=== PATIENT | male | born 1980 | race Caucasian/White ===

== ENCOUNTER 2021-06-06 15:37 | Emergency (ER) | payer BC, OTHER ==
--- NOTE | 2021-06-06 15:40 | ERPHSYRPT ---
- History of Present Illness Time Seen by Provider: 06/06/21 15:40 Source: patient Exam Limitations: no limitations Physician History: This is a 41-year-old white male who was showering earlier today and took out his contact lens out of his eyes. However while in the shower the left eye became very red and tender. He is not sure whether or not he got soap in his eye or whether he scratched his eye with his finger when attempting to get his contact out. He was also concerned that there may be retained portion of eye contact present. Patient presents with left eye pain and redness. Location: left eye Severity: mild Apparent Injury: possibly Associated Symptoms: burning, itching, redness Visual Assistive Devices: Contacts Chemical Exposure: Yes (Soap from shower) Trauma: Yes (Possible left eye abrasion with contact removal) Welding Arc/Tanning Bed Exposure: No Allergies/Adverse Reactions: No Known Drug Allergies Allergy (Unverified 06/06/21 15:44) Travel Risk - International Travel Have you traveled outside of the country in past 3 weeks: No - Coronavirus Screening Are you exhibiting any of the following symptoms?: No Close contact with a COVID-19 positive Pt in past 14-21 Days: No - Review of Systems Constitutional: No Symptoms Eyes: Eye Pain, Eye Redness, Tearing, Foreign Body Sensation Ears, Nose, & Throat: No Symptoms Respiratory: No Symptoms Cardiac: No Symptoms Abdominal/Gastrointestinal: No Symptoms Genitourinary Symptoms: No Symptoms Musculoskeletal: No Symptoms Skin: No Symptoms Neurological: No Symptoms Psychological: No Symptoms Endocrine: No Symptoms Hematologic/Lymphatic: No Symptoms Immunological/Allergic: No Symptoms All Other Systems: Reviewed and Negative - Past Medical History Neurological History: Migraines, Peripheral Neuropathy Cardiac History: No Pertinent History Respiratory History: No Pertinent History Endocrine Medical History: No Pertinent History Musculoskeletal History: No Pertinent History Other Medical History: Gastric sleeve 10/2018, - Nursing Vital Signs Nursing Vital Signs: Initial Vital Signs Temperature 97.5 F 06/06/21 15:43 Pulse Rate 80 06/06/21 15:43 Blood Pressure 136/70 06/06/21 15:43 O2 Sat by Pulse Oximetry 96 06/06/21 15:43 Pain Scale Pain Intensity 0 - Physical Exam General Appearance: no apparent distress, alert, anxiety Eye Exam: right eye: normal inspection, left eye: PERRL, EOMI, conjunctival inflammation, corneal abrasion (3 o'clock position (lateral)) Ears, Nose, Throat Exam: normal ENT inspection, moist mucous membranes Neck Exam: normal inspection, non-tender, supple, full range of motion Respiratory Exam: airway intact, No chest tenderness, No respiratory distress Extremity Exam: normal inspection, normal range of motion, pelvis stable Neurologic: alert, oriented x 3, cooperative, wood lather II-XII nml as tested, normal mood/affect, nml cerebellar function, nml station & gait, sensation nml Skin Exam: normal color, warm, dry Lymphatic: No adenopathy SpO2 Interpretation: normal O2 Delivery: Room Air - Course Nursing assessment & vital signs reviewed: Yes Ordered Tests: Medication Summary Discontinued Medications Generic Name Dose Route Start Last Admin Trade Name Freq PRN Reason Stop Dose Admin Eye Irrigation Solution Confirm 06/06/21 15:55 Sodium/Potassium/Devyn/Magnesium 30 Ml Eye Wash Administered 06/06/21 15:56 Dose 30 ml .ROUTE .STK-MED ONE Fluorescein Sodium Confirm 06/06/21 15:55 Fluorescein Sodium 1 Mg/Strip Strip Administered 06/06/21 15:56 Dose 1 mg OP .STK-MED ONE Tetracaine HCl Confirm 06/06/21 15:55 Tetracaine Hcl/Pf 4 Ml Bottle Administered 06/06/21 15:56 Dose 4 ml OP .STK-MED ONE - Progress Progress: unchanged Progress Note: 06/06/21 16:23 Medical decision making: This patient's left eye was visualized closely it appears to be a small linear abrasion in the left cornea at approximately the 3 o'clock position. There is no evidence of any retained, fractured eye contact. The patient is choosing outpatient eyedrops over instillation of erythromycin ointment. We will send that prescription to his pharmacy. Counseled pt/family regarding: diagnosis, need for follow-up - Departure Departure Disposition: Home Clinical Impression: Left corneal abrasion Condition: Stable Critical Care Time: No Referrals: HARJIT RAMSEY NP [Primary Care Provider] - Additional Instructions: Use eyedrops as prescribed. If symptoms are worse within the next 24 hours return to the emergency department for further management. Call an check pilot tomorrow morning if your symptoms have not improved to make arrangements for follow-up appointment. Prescriptions: Hydrocodone/APAP 5/325 [Butler 5/325 mg] 1 each PO Q12H PRN PRN #5 tablet MDD 2 PRN Reason: Pain Tobramycin/Dexamethasone [Tobradex Eye Drops] 2 drops OP QID #5 ml
[2021-06-06 15:44] VITALS: BP 136/70
[2021-06-06] MEDS ORDERED: Fluor-I-Strip/Ful-Flo OP ONE (15:55)
[2021-06-06] MEDS ORDERED: TETRACAINE 0.5% STERI-UNIT SOL OP ONE (15:55)
[2021-06-06] MEDS ORDERED: Eye-Stream Solution ONE (15:55)
[2021-06-06 16:46] VITALS: PULSE 76; O2SAT 98
== END 2021-06-06 16:55 | disposition home or self-care (01) ==
LOC: ED 15:37
DX: S00.212A Abrasion of left eyelid and periocular area, initial encounter (principal); X58.XXXA Exposure to other specified factors, initial encounter; Y93.89 Activity, other specified; Y92.89 Other specified places as the place of occurrence of the external cause; S05.02XA Injury of conjunctiva and corneal abrasion without foreign body, left eye, initial encounter
CPT/HCPCS: 99283; A9270-GY

== ENCOUNTER 2024-02-14 01:13 | Observation (INO) | payer OTHER ==
--- NOTE | 2024-02-14 01:43 | ERPHSYRPT ---
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 Pt reports he has "felt bad" since yesterday morning, has been sweating and chilling intermittently. Pt reports significant abdominal discomfort, states he is unable to get comfortably lying down, has not had any solid food for the past 2 days. Pt denies any n/v/d. Pt does report some sob at time of exam, placed on supplemental O2. Pt reports he had an injection of vivitrol on 02/11, has not had any changes to his medications recently, denies recent travel or known sick contacts. Pt denies use of alcohol/illegal drugs. Timing/Duration: yesterday Quality: dullness Head Pain Location: global Severity of Pain-Max: mild Severity of Pain-Current: mild Associated Symptoms: fatigue, fever/chills, sweating, No confusion, No dizziness, No flushing, No loss of consciousness, No nausea/vomiting, No neck pain, No stiff neck, No vision changes, No visual disturbance Previous symptoms: no prior history Allergies/Adverse Reactions: No Known Drug Allergies Allergy (Unverified 06/06/21 15:44) Home Medications: Atorvastatin Calcium 20 mg PO DAILY 02/14/24 [History] Carvedilol 12.5 mg [Coreg 12.5 mg] 12.5 mg PO BID 02/14/24 [History] Naltrexone Microspheres [Vivitrol] 380 mg IM UD 02/14/24 [History] Triamterene/Hydrochlorothiazid [Triamterene-Hctz 37.5-25 mg Tb] 1 each PO DAILY 02/14/24 [History] Hx Tetanus, Diphtheria Vaccination/Date Given: No Hx Influenza Vaccination/Date Given: No Hx Pneumococcal Vaccination/Date Given: No - Review of Systems Constitutional: Fever, Chills Ears, Nose, & Throat: No Symptoms Respiratory: Dyspnea, No Cough, No Dyspnea on Exertion (VIEYRA), No Wheezing Cardiac: No Symptoms Abdominal/Gastrointestinal: Abdominal Pain, Constipation, Appetite Changes, No Nausea, No Vomiting, No Diarrhea Genitourinary Symptoms: No Symptoms Neurological: No Symptoms Psychological: No Symptoms - Past Medical History Neurological History: Migraines, Peripheral Neuropathy Cardiac History: No Pertinent History Respiratory History: No Pertinent History Endocrine Medical History: No Pertinent History Musculoskeletal History: No Pertinent History Other Medical History: Gastric sleeve 10/2018, - Past Surgical History Past Surgical History: Yes Gastrointestinal: Other Other Surgical History: gastric bypass - Social History Smoking Status: Never smoker Drug Use: none Patient Lives Alone: No - Nursing Vital Signs Nursing Vital Signs: Initial Vital Signs Temperature 100.2 F 02/14/24 01:30 Pulse Rate 112 H 02/14/24 01:30 Respiratory Rate 24 02/14/24 01:30 Blood Pressure 154/98 02/14/24 01:30 O2 Sat by Pulse Oximetry 90 L 02/14/24 01:30 Pain Scale Pain Intensity 3 - Physical Exam General Appearance: mild distress, alert Eye Exam: PERRL/EOMI, eyes nml inspection Ears, Nose, Throat Exam: normal ENT inspection Neck Exam: normal inspection, non-tender Respiratory Exam: normal breath sounds, lungs clear, airway intact, No chest tenderness, No respiratory distress, No rhonchi, No wheezing, No stridor Cardiovascular Exam: normal heart sounds, tachycardia Gastrointestinal/Abdominal Exam: soft, normal bowel sounds, No tenderness, No distention form drafter Exam: normal hearing, normal speech, PERRL Motor/Sensory Exam: no motor deficit, no sensory deficit Skin Exam: normal color, warm, diaphoresis SpO2 Interpretation: normal O2 Delivery: Room Air - Course EKG Interpreted by Me: RATE (104), Sinus Tach, Other (pr 157, qtcb 441, not suggestive of acute ischemia) Ordered Tests: Active Orders 24 hr Category Date Time Status EKG-ER Only STAT Care 02/14/24 01:38 Active IV Insertion STAT Care 02/14/24 01:38 Active ABDOMEN AND PELVIS W CONTRAST [CT] Stat Exams 02/14/24 01:57 Completed CHEST WITH CONTRAST [CT] Stat Exams 02/14/24 01:41 Completed BLOOD CULTURE Stat Lab 02/14/24 04:17 Ordered CBC W DIFF Stat Lab 02/14/24 01:56 Completed CMP Stat Lab 02/14/24 01:56 Completed ETHYL ALCOHOL Stat Lab 02/14/24 01:56 Completed LIPASE Stat Lab 02/14/24 02:00 Completed Lactic Acid Stat Lab 02/14/24 01:45 Completed TROPONIN Q4H Lab 02/14/24 01:56 Completed TROPONIN Q4H Lab 02/14/24 05:45 Ordered TROPONIN Q4H Lab 02/14/24 09:45 Ordered UA W/RFX UR CULTURE Stat Lab 02/14/24 01:40 Ordered Urine Triage Profile Stat Lab 02/14/24 01:40 Ordered Medication Summary Generic Name Dose Route Start Last Admin Trade Name Tika PRN Reason Stop Dose Admin Sodium Chloride 1,000 mls @ 999 mls/hr 02/14/24 03:37 02/14/24 03:45 Sodium Chloride 0.9% 1000 Ml IV 02/14/24 04:37 999 mls/hr .Q1H1M STA Administration Discontinued Medications Generic Name Dose Route Start Last Admin Trade Name Tika PRN Reason Stop Dose Admin Acetaminophen 975 mg 02/14/24 01:38 02/14/24 01:55 Acetaminophen 325 Mg Tablet PO 02/14/24 01:39 975 mg STAT ONE Administration Acetaminophen Confirm 02/14/24 01:52 Acetaminophen 325 Mg Tablet Administered 02/14/24 01:53 Dose 975 mg .ROUTE .STK-MED ONE Droperidol 1.25 mg 02/14/24 02:42 02/14/24 02:50 Droperidol 5 Mg/2 Ml Vial IV 02/14/24 02:43 1.25 mg STAT ONE Administration Droperidol Confirm 02/14/24 02:48 Droperidol 5 Mg/2 Ml Vial Administered 02/14/24 02:49 Dose 5 mg .ROUTE .STK-MED ONE Sodium Chloride 1,000 mls @ 999 mls/hr 02/14/24 01:38 02/14/24 03:23 Sodium Chloride 0.9% 1000 Ml IV 02/14/24 02:38 Infused .Q1H1M STA Infusion Sodium Chloride Confirm 02/14/24 01:52 Sodium Chloride 0.9% 1000 Ml Administered 02/14/24 01:53 Dose 1,000 mls @ ud .ROUTE .STK-MED ONE Sodium Chloride Confirm 02/14/24 03:41 Sodium Chloride 0.9% 1000 Ml Administered 02/14/24 03:42 Dose 1,000 mls @ ud .ROUTE .STK-MED ONE Lab/Rad Data: Laboratory Result Diagrams 02/14/24 01:56 02/14/24 01:56 Laboratory Results 06/30/24 06/30/24 06/30/24 Range/Units 02:42 02:00 01:56 WBC (4.23-9.07) x10^3/uL RBC (4.63-6.08) x10^6/uL Hgb (13.7-17.5) g/dL Hct (40.1-51.0) % MCV (79.0-92.2) fL MCH (25.7-32.2) pg MCHC (32.3-36.5) g/dL RDW (11.6-14.4) % Plt Count (163-337) x10^3/uL MPV (9.4-12.4) fL Gran % (34.0-67.9) % Immature Gran % (Auto) (0.001-0.429) % Nucleat RBC Rel Count (0.00-0.2) % Eos # (Auto) (0.04-0.54) x10^3/uL Immature Gran # (Auto) (0.001-0.031) x10^3u/L Absolute Lymphs (auto) (1.32-3.57) x10^3/uL Absolute Monos (auto) (0.30-0.82) x10^3/uL Absolute Nucleated RBC (0.00-0.012) x10^3u/L Lymphocytes % (21.8-53.1) % Monocytes % (5.3-12.2) % Eosinophils % (0.8-7.0) % Basophils % (0.2-1.2) % Absolute Granulocytes (1.78-5.38) x10^3/uL Basophils # (0.01-0.08) x10^3/uL Sodium (135-145) mmol/L Potassium (3.5-5.1) mmol/L Chloride (98-107) mmol/L Carbon Dioxide (22-30) mmol/L Anion Gap (5-15) MEQ/L BUN (9-20) mg/dL Creatinine (0.66-1.25) mg/dL Estimated GFR ML/MIN Glucose (74-106) mg/dL Lactic Acid (0.4-2.0) Calcium (8.4-10.2) mg/dL Total Bilirubin (0.2-1.3) mg/dL AST (17-59) U/L ALT (0-50) U/L Alkaline Phosphatase (38-126) U/L Troponin I (0.000-0.033) ng/mL Serum Total Protein (6.3-8.2) g/dL Albumin (3.5-5.0) g/dL Lipase 63 (23-300) U/L Ethyl Alcohol < 10 (0-10) mg/dL Influenza Type A Ag NEGATIVE (NEGATIVE) Influenza Type B Ag NEGATIVE (NEGATIVE) RSV (PCR) NEGATIVE (NEGATIVE) SARS-CoV-2 (PCR) NEGATIVE (NEGATIVE) 02/14/24 02/14/24 02/14/24 Range/Units 01:56 01:56 01:56 WBC 11.9 H (4.23-9.07) x10^3/uL RBC 5.02 (4.63-6.08) x10^6/uL Hgb 15.1 (13.7-17.5) g/dL Hct 44.1 (40.1-51.0) % MCV 87.8 (79.0-92.2) fL MCH 30.1 (25.7-32.2) pg MCHC 34.2 (32.3-36.5) g/dL RDW 12.3 (11.6-14.4) % Plt Count 230 (163-337) x10^3/uL MPV 9.3 L (9.4-12.4) fL Gran % 85.1 H (34.0-67.9) % Immature Gran % (Auto) 0.3 (0.001-0.429) % Nucleat RBC Rel Count 0.0 (0.00-0.2) % Eos # (Auto) 0.38 (0.04-0.54) x10^3/uL Immature Gran # (Auto) 0.03 (0.001-0.031) x10^3u/L Absolute Lymphs (auto) 0.63 L (1.32-3.57) x10^3/uL Absolute Monos (auto) 0.70 (0.30-0.82) x10^3/uL Absolute Nucleated RBC 0.00 (0.00-0.012) x10^3u/L Lymphocytes % 5.3 L (21.8-53.1) % Monocytes % 5.9 (5.3-12.2) % Eosinophils % 3.2 (0.8-7.0) % Basophils % 0.2 (0.2-1.2) % Absolute Granulocytes 10.15 H (1.78-5.38) x10^3/uL Basophils # 0.02 (0.01-0.08) x10^3/uL Sodium 138 (135-145) mmol/L Potassium 3.3 L (3.5-5.1) mmol/L Chloride 103 (98-107) mmol/L Carbon Dioxide 23 (22-30) mmol/L Anion Gap 15.2 H (5-15) MEQ/L BUN 15 (9-20) mg/dL Creatinine 0.77 (0.66-1.25) mg/dL Estimated GFR 112.5 ML/MIN Glucose 146 H (74-106) mg/dL Lactic Acid (0.4-2.0) Calcium 9.5 (8.4-10.2) mg/dL Total Bilirubin 1.30 (0.2-1.3) mg/dL AST 26 (17-59) U/L ALT 31 (0-50) U/L Alkaline Phosphatase 63 (38-126) U/L Troponin I < 0.012 (0.000-0.033) ng/mL Serum Total Protein 7.6 (6.3-8.2) g/dL Albumin 4.4 (3.5-5.0) g/dL Lipase (23-300) U/L Ethyl Alcohol (0-10) mg/dL Influenza Type A Ag (NEGATIVE) Influenza Type B Ag (NEGATIVE) RSV (PCR) (NEGATIVE) SARS-CoV-2 (PCR) (NEGATIVE) 02/14/24 Range/Units 01:45 WBC (4.23-9.07) x10^3/uL RBC (4.63-6.08) x10^6/uL Hgb (13.7-17.5) g/dL Hct (40.1-51.0) % MCV (79.0-92.2) fL MCH (25.7-32.2) pg MCHC (32.3-36.5) g/dL RDW (11.6-14.4) % Plt Count (163-337) x10^3/uL MPV (9.4-12.4) fL Gran % (34.0-67.9) % Immature Gran % (Auto) (0.001-0.429) % Nucleat RBC Rel Count (0.00-0.2) % Eos # (Auto) (0.04-0.54) x10^3/uL Immature Gran # (Auto) (0.001-0.031) x10^3u/L Absolute Lymphs (auto) (1.32-3.57) x10^3/uL Absolute Monos (auto) (0.30-0.82) x10^3/uL Absolute Nucleated RBC (0.00-0.012) x10^3u/L Lymphocytes % (21.8-53.1) % Monocytes % (5.3-12.2) % Eosinophils % (0.8-7.0) % Basophils % (0.2-1.2) % Absolute Granulocytes (1.78-5.38) x10^3/uL Basophils # (0.01-0.08) x10^3/uL Sodium (135-145) mmol/L Potassium (3.5-5.1) mmol/L Chloride (98-107) mmol/L Carbon Dioxide (22-30) mmol/L Anion Gap (5-15) MEQ/L BUN (9-20) mg/dL Creatinine (0.66-1.25) mg/dL Estimated GFR ML/MIN Glucose (74-106) mg/dL Lactic Acid 0.9 (0.4-2.0) Calcium (8.4-10.2) mg/dL Total Bilirubin (0.2-1.3) mg/dL AST (17-59) U/L ALT (0-50) U/L Alkaline Phosphatase (38-126) U/L Troponin I (0.000-0.033) ng/mL Serum Total Protein (6.3-8.2) g/dL Albumin (3.5-5.0) g/dL Lipase (23-300) U/L Ethyl Alcohol (0-10) mg/dL Influenza Type A Ag (NEGATIVE) Influenza Type B Ag (NEGATIVE) RSV (PCR) (NEGATIVE) SARS-CoV-2 (PCR) (NEGATIVE) - Progress Progress: unchanged Air Movement: good Progress Note: 02/14/24 04:25 GOODEN improved w/ droperidol pt has received 2L IV NS, has not urinated yet CT chest/abd/pel 1. Bilateral simple renal cortical cysts. 2. Mild colonic diverticulosis without diverticulitis. 3. Small fat containing umbilical hernia. 4. Mild lumbar spondylotic changes with L5 1st degree lytic spondylolisthesis. Bilateral lower lobes posterior subpleural patchy ground glass veiling and reticular densities, more evident on the left side, possibly post-infectious sequel advise clinical correlation pt has been hypoxic, requiring supplemental O2 to keep sat in mid 90s no hx of COPD, does report sleep apnea blood cx obtained lipase wnl plan to admit to hospitalist for further w/u, Dr Eugene willing to accept Blood Culture(s) Obtained: Yes Antibiotics given: No Will see patient in: hospital (observation) Counseled pt/family regarding: lab results, diagnosis, need for follow-up, rad results Medical Desision Making - Diagnostic Testing Diagnostic test were ordered, analyzed, and reviewed by me: Yes Radiological Interpretation: Reviewed by me, Teleradiologist Report - Risk of complications The pt has a high risk of morbidity or mortality based on: Decision regarding hospitilization or escalation of hosp level of care - Departure Departure Disposition: Observation Clinical Impression: Hypoxia Abdominal pain Qualifiers: Abdominal location: generalized Qualified Code(s): R10.84 - Generalized abdominal pain Headache Qualifiers: Headache type: unspecified Headache chronicity pattern: acute headache Intractability: not intractable Qualified Code(s): R51.9 - Headache, unspecified Condition: Stable Critical Care Time: No Referrals: HARJIT RAMSEY NP [Primary Care Provider] - Follow up/PCP as directed
[2024-02-14] MEDS ORDERED: TYLENOL 325 MG ONE (01:52)
[2024-02-14] MEDS ORDERED: Sodium Chloride 0.9% 1000 ML 1,000 ML ONE ×2 (01:52→03:41)
[2024-02-14] MEDS: Sodium Chloride 0.9% 1000 ML 1,000 ML IV STA ×2 (01:54→03:45)
[2024-02-14] MEDS: TYLENOL 325 MG PO ONE (01:55)
[2024-02-14 01:58] LABS: Absolute Neutrophil Ct (ANC) 10.15 x10^3/uL (1.78-5.38); BASOPHIL % 0.2 % (0.2-1.2); Basophil (Absolute #) 0.02 x10^3/uL (0.01-0.08); Eosinophil % 3.2 % (0.8-7.0); Eosinophil (Absolute #) 0.38 x10^3/uL (0.04-0.54); Hematocrit 44.1 % (40.1-51.0); Hemoglobin 15.1 g/dL (13.7-17.5); IMMATURE GRAN # 0.03 x10^3u/L (0.001-0.031); IMMATURE GRAN % 0.3 % (0.001-0.429); Lymphocyte (Absolute #) 0.63 x10^3/uL (1.32-3.57); Lymphocytes % 5.3 % (21.8-53.1); Mean Cell Volume 87.8 fL (79.0-92.2); Mean Corpuscular Hemoglobin 30.1 pg (25.7-32.2); Mean Corpuscular Hgb Concent. 34.2 g/dL (32.3-36.5); Mean Platelet Volume 9.3 fL (9.4-12.4); Monocytes % 5.9 % (5.3-12.2); Neutrophil % 85.1 % (34.0-67.9); Platelet Count 230 x10^3/uL (163-337); Red Blood Count 5.02 x10^6/uL (4.63-6.08); Red Cell Distribution Width 12.3 % (11.6-14.4); White Blood Count 11.9 x10^3/uL (4.23-9.07)
[2024-02-14 02:15] LABS: ALBUMIN 4.4 g/dL (3.5-5.0); ANION GAP 15.2 MEQ/L (5-15); BILIRUBIN,TOTAL 1.3 mg/dL (0.2-1.3); Calcium 9.5 mg/dL (8.4-10.2); Creatinine 1 0.77 mg/dL (0.66-1.25); EST GLOMERULAR FILTRATION RATE 112.5 ML/MIN; Potassium 3.3 mmol/L (3.5-5.1); Total Protein 7.6 g/dL (6.3-8.2)
[2024-02-14 03:19] LABS: INFLUENZA A NEGATIVE (NEGATIVE); INFLUENZA B NEGATIVE (NEGATIVE); RESPIRATORY SYNCTIAL VIRUS NEGATIVE (NEGATIVE); SARS-CoV-2 Xpert Express NEGATIVE (NEGATIVE)
--- NOTE | 2024-02-14 03:26 | XRAY ---
CLINICAL HISTORY: hypoxic, sob COMPARISON: 11/14/2023 TECHNIQUE: Contiguous axial CT images of the chest were acquired with the administration of 80 cc Isovue-370 intravenous contrast. Coronal and sagittal reconstructions were obtained. One of the following dose reduction techniques were utilized for this exam: Automated exposure control, adjustment of the mA and/or kV according to patient size, use of iterative reconstruction? FINDINGS: Bilateral lower lobes posterior subpleural patchy ground glass veiling and reticular densities, more evident on the left side. No pulmonary nodules, cavitations or masses. The main pulmonary trunk, right and left pulmonary arteries show no obvious emboli on the current contrast-enhanced non-angiographic phase. The aortic arch and visualized ascending aorta and descending aorta are normal. No significant mediastinal lymphadenopathy. No evidence of pleural/pericardial effusion. Heart size is normal. Small hiatus hernia. Mild thoracic spondylotic changes. IMPRESSION: Bilateral lower lobes posterior subpleural patchy ground glass veiling and reticular densities, more evident on the left side, possibly post-infectious sequel advise clinical correlation. Electronically Signed by: Harris Carranza MD. (02/14/2024 03:22:21 EDT)
--- NOTE | 2024-02-14 03:38 | XRAY ---
CLINICAL HISTORY: abdominal pain COMPARISON: None TECHNIQUE: A CT scan of the abdomen and pelvis was performed with 80 cc Isovue-370 IV contrast. One of the following dose reduction techniques was utilized for this exam: Automated exposure control, adjustment of the mA and/or kV according to patient size, and use of iterative reconstruction. FINDINGS: Abdomen: The liver is average in size. No focal or diffuse parenchymal abnormality. The portal vein, intrahepatic biliary radicals and the bile ducts are normal. The spleen is average in size with a small splenule near its inferior pole. The pancreas and adrenal glands are unremarkable. The kidneys are normal in size and shape. No calculi or hydronephrosis. Lower pole cysts are seen measuring 48 x 31 mm and 35 x 31 mm on the right and left sides respectively. The gallbladder is normal. No pericholecystic collection or radio dense calculi in the gall bladder. Evidence of the gastric surgical procedure for clinical correlation. Mild colonic diverticulosis without signs of diverticulitis. The visualized small bowel loops are unremarkable. There is no evidence of significant enlargement of the mesenteric or retroperitoneal lymph nodes. Small fat-containing umbilical hernia. Normal appearance of the appendix. Pelvis: The urinary bladder is unremarkable. The rectosigmoid colon is unremarkable. The prostate is unremarkable. The pelvic vasculature is unremarkable. No evidence of pelvic lymphadenopathy. Mild lumbar spondylotic changes with L5 1st degree lytic spondylolisthesis. IMPRESSION: 1. Bilateral simple renal cortical cysts. 2. Mild colonic diverticulosis without diverticulitis. 3. Small fat containing umbilical hernia. 4. Mild lumbar spondylotic changes with L5 1st degree lytic spondylolisthesis. Electronically Signed by: Harris Carranza MD. (02/14/2024 03:34:01 EDT)
--- NOTE | 2024-02-14 05:53 | PCM.HP ---
History of Present Illness - Chief Complaint Chief Complaint: hypoxia Date: 02/14/24 History of Present Illness: Mr. KATE is a 43 year old male with a past medical history significant for hypertension, EtOH use in the past and hyperlipidemia who presents to the [facility] with complaints of headache that started this morning and worsened through the day. No other associated symptoms such as slurred speech, focal weakness or vision changes. No fever/chills. Slight nausea but no vomiting or diarrhea. Tried taking tylenol at home without benefit. He used to have migraines as a child but believes those were worse. 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 He is resting in bed, sleepy but arousable. He initially was unable to make urine but has finally started peeing after receiving 2L of IVFs in the ER. - Review of Systems Constitutional: Fatigue, Lethargy, No Fever, No Chills Eyes: No Vision Changes Ears, Nose, & Throat: No Epistaxis, No Painful Swallowing Respiratory: No Cough, No Orthopnea, No Short Of Breath Cardiac: No Chest Pain, No Edema, No Palpitations Abdominal/Gastrointestinal: Nausea, No Abdominal Pain, No Vomiting, No Diarrhea Genitourinary Symptoms: No Dysuria, No Frequency, No Hematuria Musculoskeletal: No Neck Pain, No Joint Pain Skin: No Cellulitis, No Rash Neurological: Headache, No Dizziness, No Focal Weakness Psychological: No Suicidal Ideations Endocrine: No Polyuria, No Polydipsia Hematologic/Lymphatic: No Easy Bleeding Medications & Allergies Home Medications: Home Medication List Atorvastatin Calcium 20 mg PO DAILY 02/14/24 [History Confirmed 02/14/24] Carvedilol 12.5 mg [Coreg 12.5 mg] 12.5 mg PO BID 02/14/24 [History Confirmed 02/14/24] Multivitamin [Multi-Vitamin Daily] 1 tab PO DAILY 02/14/24 [History Confirmed 02/14/24] Naltrexone Microspheres [Vivitrol] 380 mg IM UD 02/14/24 [History Confirmed 02/14/24] Triamterene/Hydrochlorothiazid [Triamterene-Hctz 37.5-25 mg Tb] 1 each PO DAILY 02/14/24 [History Confirmed 02/14/24] Allergies/Adverse Reactions: Allergies Allergy/AdvReac Type Severity Reaction Status Date / Time No Known Drug Allergies Allergy Verified 02/14/24 05:11 - Past Medical History Past Medical History: Yes Neurological History: Migraines, Peripheral Neuropathy ENT History: No Pertinent History Cardiac History: No Pertinent History Respiratory History: No Pertinent History Endocrine Medical History: No Pertinent History Musculoskelatal History: No Pertinent History GI Medical History: Diverticulosis History: No Pertinent History Pyscho-Social History: No Pertinent History Male Reproductive Disorders: No Pertinent History Comment: Gastric sleeve 10/2018, - Past Surgical History Past Surgical History: Yes Neuro Surgical History: No Pertinent History Cardiac History: No Pertinent History Respiratory Surgery: No Pertinent History GI Surgical History: Other Genitourinary Surgical Hx: No Pertinent History Musculskeletal Surgical Hx: No Pertinent History Male Surgical History: No Pertinent History Other Surgical History: gastric bypass - Social History Smoking Status: Never smoker Exposure to second hand smoke: No Alcohol: None Drug Use: none - Social Determinants of Health Will the patient participate in the screening: Yes Do you worry about a steady place to live?: No Do you have any problems with any of the following?: No known problems In the past 12 months,have you had to go without utilities?: No Have you or anyone in your house had to go without enough: No Transportation Issues: No Has anyone in your support network made you feel unsafe?: No Does the patient want assistance with any of the above?: No - Physical Exam Vital Signs: Vital Signs - 24 hr Temp Pulse Resp BP BP Pulse Ox 02/14/24 05:20 99.1 F 99 H 22 133/81 93 L 02/14/24 04:30 97.7 F 91 H 24 133/76 95 02/14/24 04:00 97 H 23 130/79 94 L 02/14/24 03:53 92 H 21 148/94 94 L 02/14/24 03:30 98 H 116/68 94 L 02/14/24 03:21 95 H 107/84 94 L 02/14/24 02:00 101 H 28 H 131/90 94 L 02/14/24 01:30 100.2 F 112 H 24 154/98 90 L General Appearance: no apparent distress Neurologic Exam: alert, oriented x 3, No facial droop, No slurred speech, No aphasia Ears, Nose, Throat Exam: dry mucous membranes Neck Exam: supple Respiratory Exam: No respiratory distress Cardiovascular Exam: regular rate/rhythm Gastrointestinal/Abdomen Exam: soft Back Exam: No rash Extremity Exam: No pedal edema, No swelling Skin Exam: No rash Results - Labs Lab/Micro Results: Lab Results-Last 24 Hours 02/14/24 02/14/24 02/14/24 Range/Units 01:45 01:56 01:56 WBC 11.9 H (4.23-9.07) x10^3/uL RBC 5.02 (4.63-6.08) x10^6/uL Hgb 15.1 (13.7-17.5) g/dL Hct 44.1 (40.1-51.0) % MCV 87.8 (79.0-92.2) fL MCH 30.1 (25.7-32.2) pg MCHC 34.2 (32.3-36.5) g/dL RDW 12.3 (11.6-14.4) % Plt Count 230 (163-337) x10^3/uL MPV 9.3 L (9.4-12.4) fL Gran % 85.1 H (34.0-67.9) % Immature Gran % (Auto) 0.3 (0.001-0.429) % Nucleat RBC Rel Count 0.0 (0.00-0.2) % Eos # (Auto) 0.38 (0.04-0.54) x10^3/uL Immature Gran # (Auto) 0.03 (0.001-0.031) x10^3u/L Absolute Lymphs (auto) 0.63 L (1.32-3.57) x10^3/uL Absolute Monos (auto) 0.70 (0.30-0.82) x10^3/uL Absolute Nucleated RBC 0.00 (0.00-0.012) x10^3u/L Lymphocytes % 5.3 L (21.8-53.1) % Monocytes % 5.9 (5.3-12.2) % Eosinophils % 3.2 (0.8-7.0) % Basophils % 0.2 (0.2-1.2) % Absolute Granulocytes 10.15 H (1.78-5.38) x10^3/uL Basophils # 0.02 (0.01-0.08) x10^3/uL Sodium 138 (135-145) mmol/L Potassium 3.3 L (3.5-5.1) mmol/L Chloride 103 (98-107) mmol/L Carbon Dioxide 23 (22-30) mmol/L Anion Gap 15.2 H (5-15) MEQ/L BUN 15 (9-20) mg/dL Creatinine 0.77 (0.66-1.25) mg/dL Estimated GFR 112.5 ML/MIN Glucose 146 H (74-106) mg/dL Lactic Acid 0.9 (0.4-2.0) Calcium 9.5 (8.4-10.2) mg/dL Total Bilirubin 1.30 (0.2-1.3) mg/dL AST 26 (17-59) U/L ALT 31 (0-50) U/L Alkaline Phosphatase 63 (38-126) U/L Troponin I (0.000-0.033) ng/mL Serum Total Protein 7.6 (6.3-8.2) g/dL Albumin 4.4 (3.5-5.0) g/dL Lipase (23-300) U/L Ethyl Alcohol (0-10) mg/dL Influenza Type A Ag (NEGATIVE) Influenza Type B Ag (NEGATIVE) RSV (PCR) (NEGATIVE) SARS-CoV-2 (PCR) (NEGATIVE) 02/14/24 02/14/24 02/14/24 Range/Units 01:56 01:56 02:00 WBC (4.23-9.07) x10^3/uL RBC (4.63-6.08) x10^6/uL Hgb (13.7-17.5) g/dL Hct (40.1-51.0) % MCV (79.0-92.2) fL MCH (25.7-32.2) pg MCHC (32.3-36.5) g/dL RDW (11.6-14.4) % Plt Count (163-337) x10^3/uL MPV (9.4-12.4) fL Gran % (34.0-67.9) % Immature Gran % (Auto) (0.001-0.429) % Nucleat RBC Rel Count (0.00-0.2) % Eos # (Auto) (0.04-0.54) x10^3/uL Immature Gran # (Auto) (0.001-0.031) x10^3u/L Absolute Lymphs (auto) (1.32-3.57) x10^3/uL Absolute Monos (auto) (0.30-0.82) x10^3/uL Absolute Nucleated RBC (0.00-0.012) x10^3u/L Lymphocytes % (21.8-53.1) % Monocytes % (5.3-12.2) % Eosinophils % (0.8-7.0) % Basophils % (0.2-1.2) % Absolute Granulocytes (1.78-5.38) x10^3/uL Basophils # (0.01-0.08) x10^3/uL Sodium (135-145) mmol/L Potassium (3.5-5.1) mmol/L Chloride (98-107) mmol/L Carbon Dioxide (22-30) mmol/L Anion Gap (5-15) MEQ/L BUN (9-20) mg/dL Creatinine (0.66-1.25) mg/dL Estimated GFR ML/MIN Glucose (74-106) mg/dL Lactic Acid (0.4-2.0) Calcium (8.4-10.2) mg/dL Total Bilirubin (0.2-1.3) mg/dL AST (17-59) U/L ALT (0-50) U/L Alkaline Phosphatase (38-126) U/L Troponin I < 0.012 (0.000-0.033) ng/mL Serum Total Protein (6.3-8.2) g/dL Albumin (3.5-5.0) g/dL Lipase 63 (23-300) U/L Ethyl Alcohol < 10 (0-10) mg/dL Influenza Type A Ag (NEGATIVE) Influenza Type B Ag (NEGATIVE) RSV (PCR) (NEGATIVE) SARS-CoV-2 (PCR) (NEGATIVE) 02/14/24 02/14/24 Range/Units 02:42 04:54 WBC (4.23-9.07) x10^3/uL RBC (4.63-6.08) x10^6/uL Hgb (13.7-17.5) g/dL Hct (40.1-51.0) % MCV (79.0-92.2) fL MCH (25.7-32.2) pg MCHC (32.3-36.5) g/dL RDW (11.6-14.4) % Plt Count (163-337) x10^3/uL MPV (9.4-12.4) fL Gran % (34.0-67.9) % Immature Gran % (Auto) (0.001-0.429) % Nucleat RBC Rel Count (0.00-0.2) % Eos # (Auto) (0.04-0.54) x10^3/uL Immature Gran # (Auto) (0.001-0.031) x10^3u/L Absolute Lymphs (auto) (1.32-3.57) x10^3/uL Absolute Monos (auto) (0.30-0.82) x10^3/uL Absolute Nucleated RBC (0.00-0.012) x10^3u/L Lymphocytes % (21.8-53.1) % Monocytes % (5.3-12.2) % Eosinophils % (0.8-7.0) % Basophils % (0.2-1.2) % Absolute Granulocytes (1.78-5.38) x10^3/uL Basophils # (0.01-0.08) x10^3/uL Sodium (135-145) mmol/L Potassium (3.5-5.1) mmol/L Chloride (98-107) mmol/L Carbon Dioxide (22-30) mmol/L Anion Gap (5-15) MEQ/L BUN (9-20) mg/dL Creatinine (0.66-1.25) mg/dL Estimated GFR ML/MIN Glucose (74-106) mg/dL Lactic Acid (0.4-2.0) Calcium (8.4-10.2) mg/dL Total Bilirubin (0.2-1.3) mg/dL AST (17-59) U/L ALT (0-50) U/L Alkaline Phosphatase (38-126) U/L Troponin I < 0.012 (0.000-0.033) ng/mL Serum Total Protein (6.3-8.2) g/dL Albumin (3.5-5.0) g/dL Lipase (23-300) U/L Ethyl Alcohol (0-10) mg/dL Influenza Type A Ag NEGATIVE (NEGATIVE) Influenza Type B Ag NEGATIVE (NEGATIVE) RSV (PCR) NEGATIVE (NEGATIVE) SARS-CoV-2 (PCR) NEGATIVE (NEGATIVE) - Radiology Impressions Radiology Exams & Impressions: Radiology Procedures Category Date Time Status ABDOMEN AND PELVIS W CONTRAST [CT] Stat Exams 02/14/24 01:57 Completed CHEST WITH CONTRAST [CT] Stat Exams 02/14/24 01:41 Completed Assessment/Plan (1) Headache Current Visit: Yes Status: Acute Qualifiers: Headache type: unspecified Headache chronicity pattern: acute headache Intractability: not intractable Qualified Code(s): R51.9 - Headache, unspecified Assessment & Plan: Unclear etiology, may be tension headaches versus migraines but doubt meningitis/CVA as no neuro deficits noted 1. Will try NSAIDs for pain 2. Monitor with neuro checks 3. Reduce stimuli Code(s): R51.9 - HEADACHE, UNSPECIFIED (2) Oliguria Current Visit: Yes Status: Acute Assessment & Plan: Likely from dehydration in setting of diuretics, though kidney function appears good 1. Continue IVFs 2. Check urine lytes, urine creatinine 3. Follow I/Os 4. Watch electrolytes, creatinine closely Code(s): R34 - ANURIA AND OLIGURIA (3) Essential (primary) hypertension Current Visit: Yes Status: Acute Assessment & Plan: Under fairly good control, though diuretics may have caused some d ehydration/decreased urine output 1. Hold Triamterene HCT 2. Low Na diet 3. Monitor blood pressure readings Code(s): I10 - ESSENTIAL (PRIMARY) HYPERTENSION (4) Hypokalemia Current Visit: Yes Status: Acute Assessment & Plan: Likely from thiazide diuretic 1. Replete K 2. Check Mg 3. Monitor electrolytes closely Code(s): E87.6 - HYPOKALEMIA Telemedicine Encounter - Telemedicine Encounter Telemedicine Encounter: The entirety of this encounter was performed via Telemedicine"
[2024-02-14] MEDS ORDERED: Docusate Sodium 100 MG PO PRN (06:02)
[2024-02-14] MEDS: Sodium Chloride 0.9% 1000 ML 1,000 ML IV SCH (06:25)
[2024-02-14] MEDS: MOTRIN 400 MG PO PRN (07:48)
[2024-02-14] MEDS: Klor Con PO SCH (07:49)
[2024-02-14 08:42] LABS: Appearance Clear (Clear); Bacteria None Seen /HPF (None Seen); Bilirubin Negative (Negative); Blood Negative (Negative); Epithelial Cells None Seen /HPF (None Seen); Glucose, Urine Negative (Negative); Hyaline Casts NONE SEEN /LPF (0-2); Ketones 80 (Negative); Leukocyte Esterase Negative (Negative); Nitrite Negative (Negative); Ph 5.5 (4.6-8.0); Protein,Urine Dip Trace (Negative); RBC 0-2 /HPF (0-5); Specific Gravity >=1.030 (1.005-1.030); Urobilinogen 0.2 mg/dL (0.2); WBC 0-2 /HPF (0-5)
[2024-02-14 09:01] LABS: ADD URINE CULTURE? NO (NO)
[2024-02-14] MEDS: ROCEPHIN 1 GM / 100 ML NaCl 1 GM/100 ML IVPB IV SCH (09:11)
[2024-02-14 09:18] LABS: Amphetamine,Urine NEGATIVE (NEGATIVE); Barbiturate,Urine NEGATIVE (NEGATIVE); Benzodiazepine,Urine NEGATIVE (NEGATIVE); Cocaine,Urine NEGATIVE (NEGATIVE); Methadone,Urine NEGATIVE (NEGATIVE); Opiate,Urine NEGATIVE (NEGATIVE); PCP,Urine NEGATIVE (NEGATIVE); THC,Urine NEGATIVE (NEGATIVE)
[2024-02-14] MEDS: ZOCOR 20MG PO SCH (09:18)
[2024-02-14] MEDS: THERAGRAN MULTIVITAMIN PO SCH (09:18)
[2024-02-14] MEDS: COREG 12.5 MG PO SCH (09:19)
[2024-02-14] MEDS: Pepcid 20 MG PO SCH (09:19)
[2024-02-14] MEDS: ENOXAPARIN SODIUM SQ SCH (09:24)
[2024-02-14] MEDS ORDERED: NON-FORMULARY ITEM (Atorvastatin Calcium [Atorvastatin Calcium] 20 MG Tablet) PO SCH (10:00)
[2024-02-14] MEDS ORDERED: NON-FORMULARY ITEM (Multivitamin [Multi-Vitamin Daily] 1 EACH Tablet) PO SCH (10:00)
[2024-02-14] MEDS: Zithromax 500 MG/ 250 ML NaCl Premix 500 MG/250 ML IVPB IV SCH (10:14)
--- NOTE | 2024-02-14 11:37 | PCM.NOTE ---
Mr. KATE is a 43 year old male with a past medical history significant for hypertension, EtOH use in the past and hyperlipidemia admitted 02/14/24 with sepsis secondary to pneumonia after experiencing a one day history of fevers, abdominal discomfort, body aches, and headache. CT abdomen with no acute findings - chronic findings of . Bilateral simple renal cortical cysts. Mild colonic diverticulosis without diverticulitis.Small fat containing umbilical hernia.Mild lumbar spondylotic changes with L5 1st degree lytic spondylolisthesis. CT scan of the chest with bilateral lower lobes posterior subpleural patchy ground glass veiling and reticular densities, more evident on the left side, possibly post-infectious. Lab findings significant for leuko cytosis, hypokalemia, elevated procal, and elevated GAP. Negative UA. Patient is ill-appearing and febrile with Tmax at 101.1. Resp viral panel negative. Procal and WBC elevated. Patient hypoxic requiring 4L of oxygen, baseline RA. Plan for ceftriaxone/azithromycin/IVF. Additional diagnosis Sepsis/pneumonia -LA WNL -IVF -Most likely CAP - treat with ceftriaxone/azithromycin -anti-pyretics -resp downs negative -sputum culture -ABG prn if significant hypoxia/lethargy -supplemental oxygen with spo2 goal > 92% -wean as appropriate -tele (1) Headache Current Visit: Yes Status: Acute Qualifiers: Headache type: unspecified Headache chronicity pattern: acute headache Intractability: not intractable Qualified Code(s): R51.9 - Headache, unspecified Assessment & Plan: Unclear etiology, may be tension headaches versus migraines but doubt meningitis/CVA as no neuro deficits noted 1. Will try NSAIDs for pain 2. Monitor with neuro checks 3. Reduce stimuli 02/13: -CT head pending Code(s): R51.9 - HEADACHE, UNSPECIFIED (2) Oliguria Current Visit: Yes Status: Acute Assessment & Plan: Likely from dehydration in setting of diuretics, though kidney function appears good 1. Continue IVFs 2. Check urine lytes, urine creatinine 3. Follow I/Os 4. Watch electrolytes, creatinine closely 02/13: -resolved with 300ml output -bladder scan Code(s): R34 - ANURIA AND OLIGURIA (3) Essential (primary) hypertension Current Visit: Yes Status: Acute Assessment & Plan: Under fairly good control, though diuretics may have caused some dehydration/decreased urine output 1. Hold Triamterene HCT 2. Low Na diet 3. Monitor blood pressure readings Code(s): I10 - ESSENTIAL (PRIMARY) HYPERTENSION (4) Hypokalemia Current Visit: Yes Status: Acute Assessment & Plan: Likely from thiazide diuretic 1. Replete K 2. Check Mg 3. Monitor electrolytes closely Code(s): E87.6 - HYPOKALEMIA <LOLLY MEJÍA - Last Filed: 02/14/24 11:22> TRACY Encounter - TRACY Encounter Attestation TRACY Encounter Attestation: "IhritapersonallysRAFAL Keys andhavediscussed pertinent aspects of their care with Lolly Mejía and agree with the history, physical exam (any modifications based on my personal exam will be noted below), assessment, and plan as outlined in original note. Please see immediately below for my summary of findings and additional assessment and plan along with any meaningful corrections/explanations to the Subjective/Objective portions of the TRACY note will be noted." My portion of the encounter took place via telemedicine. -Patient with hypoxia and sepsis likely secondary to pneumonia based on CT findings. Agree with initiating ceftriaxone and azithromycin. Patient is a non smoker and denies any chronic lung disease <KRISTOPHER BACA - Last Filed: 02/14/24 19:45>
[2024-02-14] MEDS ORDERED: VALIUM 10 MG/2 ML SYRINGE IV PRN (11:59)
[2024-02-14] MEDS: TYLENOL 325 MG PO PRN (12:14)
[2024-02-14 14:42] LABS: PROTEIN,URINE RANDOM < 5 mg/dL (0-12)
[2024-02-14 14:51] LABS: CREATININE,URINE RANDOM 146.4 MG/DL
[2024-02-14] MEDS: Xopenex 1.25 MG/0.5 ML UD NEBULE IH PRN (15:07)
[2024-02-14] MEDS: PROVENTIL 2.5 MG/3 ML NEB IH PRN (19:39)
--- NOTE | 2024-02-14 21:37 | XRAY ---
CLINICAL HISTORY: Headache COMPARISON: None TECHNIQUE: An axial non-contrast CT scan of the brain was performed from the skull base to the high parietal region. Coronal and sagittal sections have also been acquired. One of the following dose-reduction techniques was utilized for this exam. Automated exposure control, adjustment of the mA and/or kV according to patient size, and use of iterative reconstruction. FINDINGS: The visualized brain parenchyma shows a normal appearance. No area of hyperacute or acute infarction is noted. No intracerebral or extra axial hematoma. Maxwell-white matter differentiation is maintained. No mass effect or midline shift. No space-occupying lesion noted. Normal size and configuration of the cerebral ventricles. Normal CT appearance of the posterior fossa structures namely the cerebellar hemispheres, brainstem, and cerebellar peduncles. The IACs are unremarkable. The cerebello-pontine angles are clear. The pituitary gland, the pineal gland, the optic chiasm are unremarkable. The osseous structures in the skull base are unremarkable. No definite calvarium fractures. A left maxillary retention cyst is noted, the rest of the scanned paranasal sinuses are clear. IMPRESSION: No acute intra or extra-axial pathology is identifiedd. Electronically Signed by: Harris Carranza MD. (02/14/2024 21:33:39 EDT)
[2024-02-14] MEDS: solu-MEDROL 40 MG, Sterile H2O 10 ml 1 ML IV SCH (21:43)
[2024-02-15 05:22] LABS: BASOPHIL % 0.2 % (0.2-1.2); Basophil (Absolute #) 0.02 x10^3/uL (0.01-0.08); Eosinophil % 1.1 % (0.8-7.0); Eosinophil (Absolute #) 0.13 x10^3/uL (0.04-0.54); Hematocrit 39.5 % (40.1-51.0); Hemoglobin 13.4 g/dL (13.7-17.5); IMMATURE GRAN # 0.06 x10^3u/L (0.001-0.031); IMMATURE GRAN % 0.5 % (0.001-0.429); Lymphocyte (Absolute #) 0.39 x10^3/uL (1.32-3.57); Lymphocytes % 3.4 % (21.8-53.1); Mean Cell Volume 88.4 fL (79.0-92.2); Mean Corpuscular Hgb Concent. 33.9 g/dL (32.3-36.5); Mean Platelet Volume 9.9 fL (9.4-12.4); Monocyte (Absolute #) 0.29 x10^3/uL (0.30-0.82); Monocytes % 2.5 % (5.3-12.2); Neutrophil % 92.3 % (34.0-67.9); Platelet Count 213 x10^3/uL (163-337); Red Blood Count 4.47 x10^6/uL (4.63-6.08); Red Cell Distribution Width 12.7 % (11.6-14.4); White Blood Count 11.4 x10^3/uL (4.23-9.07)
[2024-02-15 05:46] LABS: ALBUMIN 3.3 g/dL (3.5-5.0); ANION GAP 12.9 MEQ/L (5-15); BILIRUBIN,TOTAL 0.6 mg/dL (0.2-1.3); Calcium 8.4 mg/dL (8.4-10.2); Creatinine 1 0.64 mg/dL (0.66-1.25); Potassium 3.7 mmol/L (3.5-5.1); Total Protein 6.2 g/dL (6.3-8.2)
[2024-02-15 07:56] LABS: Slide Review 1 YES
--- NOTE | 2024-02-15 12:09 | PCM.NOTE ---
Date and Time: 02/15/24 1159 Subjective Assessment: 02/15/24 Mr. KATE is a 43 year old male with a past medical history significant for hypertension, ETOH use in the past, and hyperlipidemia. He presented to the hospital with complaints of headache, abd. pain, sweating, and SOB that started the morning of 02/13 and worsened through the day. No other associated symptoms such as slurred speech, focal weakness or vision changes. + Slight nausea but no vomiting or diarrhea. Tried taking tylenol at home without benefit. He used to have migraines as a child but believes those were worse. 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 He initially was unable to make urine but has finally started urinating after receiving 2L of IVFs in the ER. Yesterday morning he was dx with sepsis/ pneumonia and started on antibiotics. He continues to require 5lNC and is at 91% with this. He does not wear oxygen at baseline. On the morning of 02/13 he had a temp of 101 and no temp since then. CT chest was negative for PE but did show BLLL pneumonia possible post infections. He reports he has not been recently ill but did have a fall 3 months ago onto his ribs. Those XR's were reviewed and non-concerning. He does not smoke and has never smoked. He reports he is around second hand smoke at work. H/A has resolved today. He continues to be SOB but lungs are clear. Will order Echo, BNP, and 1x dose of IV Lasix. Will monitor I&O's carefully. He denies CP, Abd pain, N/V/D. - Review of Systems Constitutional: No Fever, No Chills Eyes: No Symptoms Ears, Nose, & Throat: No Symptoms Respiratory: Short Of Breath, No Cough Cardiac: No Chest Pain, No Edema, No Syncope Abdominal/Gastrointestinal: No Abdominal Pain, No Nausea, No Vomiting, No Diarrhea Genitourinary Symptoms: No Dysuria Musculoskeletal: No Back Pain, No Neck Pain Skin: No Rash Neurological: No Dizziness, No Focal Weakness, No Sensory Changes Psychological: No Symptoms Endocrine: No Symptoms Hematologic/Lymphatic: No Symptoms Immunological/Allergic: No Symptoms Objective Exam General Appearance: no apparent distress, alert, obese Neurologic Exam: alert, oriented x 3, cooperative, normal mood/affect, nml cerebellar function, sensation nml, No motor deficits Skin Exam: normal color, warm, dry Eye Exam: PERRL, EOMI, eyes nml inspection Ears, Nose, Throat Exam: normal ENT inspection, pharynx normal, moist mucous membranes Neck Exam: normal inspection, non-tender, supple, full range of motion Respiratory Exam: normal breath sounds, lungs clear, No respiratory distress Cardiovascular Exam: regular rate/rhythm, normal heart sounds Gastrointestinal/Abdomen Exam: soft, No tenderness, No mass Extremity Exam: normal inspection, normal range of motion Back Exam: normal inspection, normal range of motion, No CVA tenderness, No vertebral tenderness Male Genitalia Exam: deferred Rectal Exam: deferred Objective Data Vital Signs: Vital Signs - 24 hr Temp Pulse Resp BP Pulse Ox 02/15/24 08:00 97.2 F 95 H 19 121/75 91 L 02/15/24 07:13 91 L 02/15/24 07:09 97 H 18 87 L 02/15/24 05:01 94 L 02/15/24 04:00 96.9 F 91 H 20 105/70 91 L 02/15/24 03:52 100 H 24 94 L 02/15/24 00:05 94 L 02/14/24 23:51 96.9 F 90 18 124/62 94 L 02/14/24 21:29 94 L 02/14/24 19:56 97.1 F 103 H 28 H 120/77 89 L 02/14/24 19:41 102 H 24 87 L 02/14/24 16:00 97.1 F 92 H 20 122/79 91 L 02/14/24 15:07 102 H 16 92 L Pain Assessment - Last Documented Pain Intensity 2 Pain Scale Used 0-10 Pain Scale Intake and Output: Intake & Output 02/12/24 02/13/24 02/14/24 02/15/24 11:59 11:59 11:59 11:59 Intake Total 120 3883 Output Total 300 Balance -180 3883 Weight 122.4 kg 125.3 kg Lab Results: Lab Results-Last 24 Hours 02/14/24 02/14/24 02/14/24 Range/Units 06:04 06:05 10:28 WBC (4.23-9.07) x10^3/uL RBC (4.63-6.08) x10^6/uL Hgb (13.7-17.5) g/dL Hct (40.1-51.0) % MCV (79.0-92.2) fL MCH (25.7-32.2) pg MCHC (32.3-36.5) g/dL RDW (11.6-14.4) % Plt Count (163-337) x10^3/uL MPV (9.4-12.4) fL Gran % (34.0-67.9) % Immature Gran % (Auto) (0.001-0.429) % Nucleat RBC Rel Count (0.00-0.2) % Eos # (Auto) (0.04-0.54) x10^3/uL Immature Gran # (Auto) (0.001-0.031) x10^3u/L Absolute Lymphs (auto) (1.32-3.57) x10^3/uL Absolute Monos (auto) (0.30-0.82) x10^3/uL Absolute Nucleated RBC (0.00-0.012) x10^3u/L Lymphocytes % (21.8-53.1) % Monocytes % (5.3-12.2) % Eosinophils % (0.8-7.0) % Basophils % (0.2-1.2) % Absolute Granulocytes (1.78-5.38) x10^3/uL Basophils # (0.01-0.08) x10^3/uL Sodium (135-145) mmol/L Potassium 3.5 (3.5-5.1) mmol/L Chloride (98-107) mmol/L Carbon Dioxide (22-30) mmol/L Anion Gap (5-15) MEQ/L BUN (9-20) mg/dL Creatinine (0.66-1.25) mg/dL Estimated GFR ML/MIN Glucose (74-106) mg/dL Hemoglobin A1c (4.5-6.0) % Calcium (8.4-10.2) mg/dL Magnesium (1.6-2.3) mg/dL Total Bilirubin (0.2-1.3) mg/dL AST (17-59) U/L ALT (0-50) U/L Alkaline Phosphatase (38-126) U/L NT-Pro-B Natriuret Pep (<300) pg/mL Serum Total Protein (6.3-8.2) g/dL Albumin (3.5-5.0) g/dL Ur Random Creatinine 146.4 MG/DL U Random Total Protein < 5 (0-12) mg/dL Urine Sodium 84 (30-90) mmol/L Slides for Path Review 02/14/24 02/15/24 02/15/24 Range/Units 15:35 05:00 05:00 WBC 11.4 H (4.23-9.07) x10^3/uL RBC 4.47 L (4.63-6.08) x10^6/uL Hgb 13.4 L (13.7-17.5) g/dL Hct 39.5 L (40.1-51.0) % MCV 88.4 (79.0-92.2) fL MCH 30.0 (25.7-32.2) pg MCHC 33.9 (32.3-36.5) g/dL RDW 12.7 (11.6-14.4) % Plt Count 213 (163-337) x10^3/uL MPV 9.9 (9.4-12.4) fL Gran % 92.3 H (34.0-67.9) % Immature Gran % (Auto) 0.5 H (0.001-0.429) % Nucleat RBC Rel Count 0.0 (0.00-0.2) % Eos # (Auto) 0.13 (0.04-0.54) x10^3/uL Immature Gran # (Auto) 0.06 H (0.001-0.031) x10^3u/L Absolute Lymphs (auto) 0.39 L (1.32-3.57) x10^3/uL Absolute Monos (auto) 0.29 L (0.30-0.82) x10^3/uL Absolute Nucleated RBC 0.00 (0.00-0.012) x10^3u/L Lymphocytes % 3.4 L (21.8-53.1) % Monocytes % 2.5 L (5.3-12.2) % Eosinophils % 1.1 (0.8-7.0) % Basophils % 0.2 (0.2-1.2) % Absolute Granulocytes 10.50 H (1.78-5.38) x10^3/uL Basophils # 0.02 (0.01-0.08) x10^3/uL Sodium 139 (135-145) mmol/L Potassium 3.8 3.7 (3.5-5.1) mmol/L Chloride 107 (98-107) mmol/L Carbon Dioxide 23 (22-30) mmol/L Anion Gap 12.9 (5-15) MEQ/L BUN 12 (9-20) mg/dL Creatinine 0.64 L (0.66-1.25) mg/dL Estimated GFR 119.0 ML/MIN Glucose 202 H (74-106) mg/dL Hemoglobin A1c (4.5-6.0) % Calcium 8.4 (8.4-10.2) mg/dL Magnesium 2.0 (1.6-2.3) mg/dL Total Bilirubin 0.60 (0.2-1.3) mg/dL AST 16 L (17-59) U/L ALT 21 (0-50) U/L Alkaline Phosphatase 51 (38-126) U/L NT-Pro-B Natriuret Pep (<300) pg/mL Serum Total Protein 6.2 L (6.3-8.2) g/dL Albumin 3.3 L (3.5-5.0) g/dL Ur Random Creatinine MG/DL U Random Total Protein (0-12) mg/dL Urine Sodium (30-90) mmol/L Slides for Path Review YES 02/15/24 02/15/24 Range/Units 05:00 05:00 WBC (4.23-9.07) x10^3/uL RBC (4.63-6.08) x10^6/uL Hgb (13.7-17.5) g/dL Hct (40.1-51.0) % MCV (79.0-92.2) fL MCH (25.7-32.2) pg MCHC (32.3-36.5) g/dL RDW (11.6-14.4) % Plt Count (163-337) x10^3/uL MPV (9.4-12.4) fL Gran % (34.0-67.9) % Immature Gran % (Auto) (0.001-0.429) % Nucleat RBC Rel Count (0.00-0.2) % Eos # (Auto) (0.04-0.54) x10^3/uL Immature Gran # (Auto) (0.001-0.031) x10^3u/L Absolute Lymphs (auto) (1.32-3.57) x10^3/uL Absolute Monos (auto) (0.30-0.82) x10^3/uL Absolute Nucleated RBC (0.00-0.012) x10^3u/L Lymphocytes % (21.8-53.1) % Monocytes % (5.3-12.2) % Eosinophils % (0.8-7.0) % Basophils % (0.2-1.2) % Absolute Granulocytes (1.78-5.38) x10^3/uL Basophils # (0.01-0.08) x10^3/uL Sodium (135-145) mmol/L Potassium (3.5-5.1) mmol/L Chloride (98-107) mmol/L Carbon Dioxide (22-30) mmol/L Anion Gap (5-15) MEQ/L BUN (9-20) mg/dL Creatinine (0.66-1.25) mg/dL Estimated GFR ML/MIN Glucose (74-106) mg/dL Hemoglobin A1c 5.72 (4.5-6.0) % Calcium (8.4-10.2) mg/dL Magnesium (1.6-2.3) mg/dL Total Bilirubin (0.2-1.3) mg/dL AST (17-59) U/L ALT (0-50) U/L Alkaline Phosphatase (38-126) U/L NT-Pro-B Natriuret Pep 426 (<300) pg/mL Serum Total Protein (6.3-8.2) g/dL Albumin (3.5-5.0) g/dL Ur Random Creatinine MG/DL U Random Total Protein (0-12) mg/dL Urine Sodium (30-90) mmol/L Slides for Path Review Radiology Exams: Radiology Procedures Category Date Time Status ABDOMEN AND PELVIS W CONTRAST [CT] Stat Exams 02/14/24 01:57 Completed CHEST WITH CONTRAST [CT] Stat Exams 02/14/24 01:41 Completed ECHO W/2D AND DOPPLER [US] Routine Exams 02/15/24 10:31 Ordered HEAD WITHOUT CONTRAST [CT] Stat Exams 02/14/24 06:07 Completed Assessment/Plan (1) Sepsis Current Visit: Yes Status: Acute Assessment & Plan: - elevated temp on day of admission - HR> 90 - Resp > 20 - + pneumonia - 2 L IVF gave in ER - Lactic acid 0.9- ok - procal elevated 0.112 (2) Pneumonia Current Visit: Yes Status: Acute Assessment & Plan: - Chest CT 02/14/24 IMPRESSION: Bilateral lower lobes posterior subpleural patchy ground glass veiling and reticular densities, more evident on the left side, possibly post-infectious sequel advise clinical correlation. -LA WNL -IVF -Most likely CAP - treat with ceftriaxone/azithromycin, steroids -anti-pyretics -resp panel negative -sputum culture - pending -ABG prn if significant hypoxia/lethargy -supplemental oxygen with spo2 goal > 92% -wean as appropriate -tele - WBC 11.4 Code(s): J18.9 - PNEUMONIA, UNSPECIFIED ORGANISM (3) Increased oxygen demand Current Visit: Yes Status: Acute Assessment & Plan: - 2:2 pneumonia? - Echo, lasix x1 - BNP 426 - I&O's - On 5LNC 91% - Continuous pulse ox - Oxygen drops when standing and walking. - PT eval - RT eval and treat - RT eval for home O2 - FLU/COVID/RSV negative - Reswab for Flu/COVID RSV Code(s): R68.89 - OTHER GENERAL SYMPTOMS AND SIGNS (4) Essential (primary) hypertension Current Visit: Yes Status: Acute Assessment & Plan: - Under fairly good control, though diuretics may have caused some dehydration/decreased urine output - Hold Triamterene HCT - Low Na diet - Monitor blood pressure readings Code(s): I10 - ESSENTIAL (PRIMARY) HYPERTENSION (5) Headache Current Visit: Yes Status: Resolved Qualifiers: Headache type: unspecified Headache chronicity pattern: acute headache Intractability: not intractable Qualified Code(s): R51.9 - Headache, unspecified Assessment & Plan: - Unclear etiology, may be tension headaches versus migraines but doubt meningitis/CVA as no neuro deficits noted - Will try NSAIDs for pain - Monitor with neuro checks - Reduce stimuli - CT head IMPRESSION: No acute intra or extra-axial pathology is identified. Code(s): R51.9 - HEADACHE, UNSPECIFIED (6) Hypokalemia Current Visit: Yes Status: Resolved Assessment & Plan: - resolved Code(s): E87.6 - HYPOKALEMIA (7) Oliguria Current Visit: Yes Status: Resolved Assessment & Plan: - resolved - monitor I&O's Code(s): R34 - ANURIA AND OLIGURIA (8) Abdominal pain Current Visit: Yes Status: Resolved Assessment & Plan: - resolved - CT abd./ pelvis: 02/14/24 IMPRESSION: 1. Bilateral simple renal cortical cysts. 2. Mild colonic diverticulosis without diverticulitis. 3. Small fat containing umbilical hernia. 4. Mild lumbar spondylotic changes with L5 1st degree lytic spondylolisthesis VTE: Lovenox PPI: Pepcid Next of KIN: Johny Kate [phone] D/C plan: 1-2 days Code status: Full Code(s): R10.9 - UNSPECIFIED ABDOMINAL PAIN
[2024-02-15] MEDS ORDERED: NON-FORMULARY ITEM PO SCH (13:00)
[2024-02-15 13:13] LABS: INFLUENZA A NEGATIVE (NEGATIVE); INFLUENZA B NEGATIVE (NEGATIVE); RESPIRATORY SYNCTIAL VIRUS NEGATIVE (NEGATIVE); SARS-CoV-2 Xpert Express NEGATIVE (NEGATIVE)
[2024-02-15] MEDS: Lasix 40 MG/4 ML IV ONE (13:55)
[2024-02-15 15:08] LABS: CK-MB 0 % (0-3); CK-MM 100 % (97-100); Creatinine Kinase, Total 79 U/L (49-439); Macro Type 1 0 % (Not Observed); Macro Type 2 0 % (Not Observed)
[2024-02-15 16:04] LABS: CK-BB 0 % (0)
[2024-02-15] MEDS: PATIENT OWN MEDICATION PO SCH (17:44)
[2024-02-15] MEDS: DUONEB 0.5-3 MG/3 ml Neb IH SCH (19:01)
[2024-02-16 04:20] LABS: A-aADO2 323; ABG HEMOGLOBIN 15.2; ABG POTASSIUM 3.6 (3.5-5.1); ARTERIAL BLD GAS O2 SATURATION 91.9 % (95-100); ARTERIAL BLOOD GAS BASE EXCESS 1.3 (-2.0-2.0); ARTERIAL BLOOD GAS FIO2 60 %; ARTERIAL BLOOD GAS PCO2 36 mmHg (35-45); ARTERIAL BLOOD GAS PO2 60 mmHg (75-100); ARTERIAL BLOOD GAS pH 7.45 (7.35-7.45); CARBOXYHEMOGLOBIN 0.8 % THgb (0.0-6.9); HGB O2 SAT 90.3 g/dF (94-100); Methhemoglobin 0.9 % (1.4-1.5); paO2 pAO1 0.16
[2024-02-16 04:21] LABS: ABG SITE LEFT BRACHIAL
[2024-02-16 04:59] LABS: Hematocrit 40.7 % (40.1-51.0); Mean Cell Volume 87.2 fL (79.0-92.2); Mean Corpuscular Hgb Concent. 34.4 g/dL (32.3-36.5); Mean Platelet Volume 10.1 fL (9.4-12.4); Platelet Count 284 x10^3/uL (163-337); Red Blood Count 4.67 x10^6/uL (4.63-6.08); Red Cell Distribution Width 12.9 % (11.6-14.4); White Blood Count 10.7 x10^3/uL (4.23-9.07)
[2024-02-16 05:31] LABS: ALBUMIN 3.5 g/dL (3.5-5.0); ANION GAP 13.2 MEQ/L (5-15); BILIRUBIN,TOTAL 0.5 mg/dL (0.2-1.3); Creatinine 1 0.6 mg/dL (0.66-1.25); EST GLOMERULAR FILTRATION RATE 121.3 ML/MIN; Potassium 3.6 mmol/L (3.5-5.1); Total Protein 6.7 g/dL (6.3-8.2)
[2024-02-16] MEDS ORDERED: HUMALOG SQ PRN (07:50)
[2024-02-16] MEDS: PIPERACILLIN/TAZOBACTAM 4.5 GM in Sodium Chloride 100ML MINI-BAG PLUS 100 ML IV SCH (08:20)
[2024-02-16] MEDS: solu-MEDROL 40 MG, Sterile H2O 10 ml 1 ML IV SCH (08:20)
[2024-02-16] MEDS: Lasix 20 MG/2 ML IV ONE (09:50)
[2024-02-16] MEDS: PATIENT OWN MEDICATION PO SCH ×2 (09:51→14:06)
--- NOTE | 2024-02-16 10:38 | XRAY ---
Indication: Increased oxygen demand. Comparison: November 14, 2023 PA/lateral chest demonstrates new diffuse bilateral pulmonary edema without consolidation/large effusion. Heart not enlarged. Bony thorax intact.
--- NOTE | 2024-02-16 11:14 | PCM.DS ---
Discharge Summary Date of Admission: 02/14/24 05:00 Date of Discharge: 02/16/24 Admitting Physician: MIGUE PRO MD Consults: Consults on Case 02/15/24 16:58 Consult Pulmonology ROUTINE Primary Care Provider: HARJIT RAMSEY Allergies Allergies No Known Drug Allergies Allergy (Verified 02/14/24 05:11) Hospital Summary - Hospital Course Hospital Course: 02/15/24 Mr. KATE is a 43 year old male with a past medical history significant for hypertension, ETOH use in the past, and hyperlipidemia. He presented to the hospital with complaints of headache, abd. pain, sweating, and SOB that started the morning of 02/13 and worsened through the day. No other associated symptoms such as slurred speech, focal weakness or vision changes. + Slight nausea but no vomiting or diarrhea. Tried taking tylenol at home without benefit. He used to have migraines as a child but believes those were worse. 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 He initially was unable to make urine but has finally started urinating after receiving 2L of IVFs in the ER. Yesterday morning he was dx with sepsis/ pneumonia and started on antibiotics. He continues to require 5lNC and is at 91% with this. He does not wear oxygen at baseline. On the morning of 02/13 he had a temp of 101 and no temp since then. CT chest was negative for PE but did show BLLL pneumonia possible post infections. He reports he has not been recently ill but did have a fall 3 months ago onto his ribs. Those XR's were reviewed and non-concerning. He does not smoke and has never smoked. He reports he is around second hand smoke at work. H/A has resolved today. He continues to be SOB but lungs are clear. Will order Echo, BNP, and 1x dose of IV Lasix. Will monitor I&O's carefully. He denies CP, Abd pain, N/V/D. 02/16/24 Pt resting in bed. This morning pt's oxygen demand increased to 10L oxymizer. If he moves in the bed, takes a deep breath, or walks to the bathroom his sat decreases. Repeat CXR today shows pulm edema. Repeat CTA today shows pulm edema as well. Changed ceftriaxone to Zosyn and increased steroids to TID dosing. Pt states he feels fine other than his oxygen demand. Labs overall look good. Sputum culture pending and reports he is no longer coughing anything up. Glucose increased d/t steroids and humalog s/s and acuuchecks added. Pulmonology [place] of the country until March 01 per RT. Was unaware of this when consult ordered yesterday. Repeat Flu/ COVID/ RSV negative. Echo shows EF 60-65%. He denies CP, abd. pain, N/V/D. He is symptomatic when oxygen drops and gets lightheaded and dizzy. He reports working with [employer] many years ago. He also reports being sick in Sep with bronchitis. He denies any other environmental causes. Echo reviewed and non-concerning. Since sxs are worsening and we do not have pulmonology will transfer to higher level of care. Pt is agreeable. He denies CP, Abd. pain, N/V/D. - Vitals & Intake/Output Vital Signs: Vital Signs Temperature 98.5 F 02/16/24 07:24 Pulse Rate 76 02/16/24 07:24 Respiratory Rate 16 02/16/24 07:24 Blood Pressure 124/73 02/16/24 07:24 O2 Sat by Pulse Oximetry 95 02/16/24 07:24 Intake & Output: Intake & Output 02/13/24 02/14/24 02/15/24 02/16/24 11:59 11:59 11:59 11:59 Intake Total 120 3883 900 Output Total 300 400 Balance -180 3883 500 Weight 122.4 kg 125.3 kg 127.5 kg - Lab Result Diagrams: 02/16/24 04:40 02/16/24 04:40 Lab Results-Last 24 Hrs: Lab Results-Last 24 Hours 02/14/24 02/15/24 02/15/24 Range/Units 04:00 05:00 12:36 WBC (4.23-9.07) x10^3/uL RBC (4.63-6.08) x10^6/uL Hgb (13.7-17.5) g/dL Hct (40.1-51.0) % MCV (79.0-92.2) fL MCH (25.7-32.2) pg MCHC (32.3-36.5) g/dL RDW (11.6-14.4) % Plt Count (163-337) x10^3/uL MPV (9.4-12.4) fL Puncture Site pCO2 (35-45) mmHg pO2 (75-100) mmHg Base Excess (-2.0-2.0) O2 Saturation (94-100) g/dF ABG pH (7.35-7.45) ABG HCO3 (22-28) ABG O2 Sat (Measured) (95-100) % Vasile Test A-a Gradient a/A Ratio Hemoglobin Carboxyhemoglobin (0.0-6.9) % THgb Methemoglobin (1.4-1.5) % Potassium (3.5-5.1) Temperature C POC O2 Flow Rate % Sodium (135-145) mmol/L Chloride (98-107) mmol/L Carbon Dioxide (22-30) mmol/L Anion Gap (5-15) MEQ/L BUN (9-20) mg/dL Creatinine (0.66-1.25) mg/dL Estimated GFR ML/MIN Glucose (74-106) mg/dL Calcium (8.4-10.2) mg/dL Total Bilirubin (0.2-1.3) mg/dL AST (17-59) U/L ALT (0-50) U/L Alkaline Phosphatase (38-126) U/L Total Creatine Kinase 79 (49-439) U/L CK-MM (CK-3) % 100 (97-100) % CK-MB (CK-2) % 0 (0-3) % CK-BB (CK-1) % 0 (0) % Macro CK Type I 0 (Not Observed) % Macro CK Type II 0 (Not Observed) % NT-Pro-B Natriuret Pep 426 (<300) pg/mL Serum Total Protein (6.3-8.2) g/dL Albumin (3.5-5.0) g/dL Influenza Type A Ag NEGATIVE (NEGATIVE) Influenza Type B Ag NEGATIVE (NEGATIVE) RSV (PCR) NEGATIVE (NEGATIVE) SARS-CoV-2 (PCR) NEGATIVE (NEGATIVE) 02/16/24 02/16/24 02/16/24 Range/Units 04:10 04:40 04:40 WBC 10.7 H (4.23-9.07) x10^3/uL RBC 4.67 (4.63-6.08) x10^6/uL Hgb 14.0 (13.7-17.5) g/dL Hct 40.7 (40.1-51.0) % MCV 87.2 (79.0-92.2) fL MCH 30.0 (25.7-32.2) pg MCHC 34.4 (32.3-36.5) g/dL RDW 12.9 (11.6-14.4) % Plt Count 284 (163-337) x10^3/uL MPV 10.1 (9.4-12.4) fL Puncture Site LEFT BRACHIAL pCO2 36 (35-45) mmHg pO2 60 L (75-100) mmHg Base Excess 1.3 (-2.0-2.0) O2 Saturation 90.3 L (94-100) g/dF ABG pH 7.45 (7.35-7.45) ABG HCO3 25.0 (22-28) ABG O2 Sat (Measured) 91.9 L (95-100) % Vasiel Test NOT APPLICABLE A-a Gradient 323 a/A Ratio 0.16 Hemoglobin 15.2 Carboxyhemoglobin 0.8 (0.0-6.9) % THgb Methemoglobin 0.9 L (1.4-1.5) % Potassium 3.6 3.6 (3.5-5.1) Temperature 37.0 C POC O2 Flow Rate 60 % Sodium 139 (135-145) mmol/L Chloride 105 (98-107) mmol/L Carbon Dioxide 24 (22-30) mmol/L Anion Gap 13.2 (5-15) MEQ/L BUN 16 (9-20) mg/dL Creatinine 0.60 L (0.66-1.25) mg/dL Estimated GFR 121.3 ML/MIN Glucose 202 H (74-106) mg/dL Calcium 9.0 (8.4-10.2) mg/dL Total Bilirubin 0.50 (0.2-1.3) mg/dL AST 19 (17-59) U/L ALT 21 (0-50) U/L Alkaline Phosphatase 59 (38-126) U/L Total Creatine Kinase (49-439) U/L CK-MM (CK-3) % (97-100) % CK-MB (CK-2) % (0-3) % CK-BB (CK-1) % (0) % Macro CK Type I (Not Observed) % Macro CK Type II (Not Observed) % NT-Pro-B Natriuret Pep (<300) pg/mL Serum Total Protein 6.7 (6.3-8.2) g/dL Albumin 3.5 (3.5-5.0) g/dL Influenza Type A Ag (NEGATIVE) Influenza Type B Ag (NEGATIVE) RSV (PCR) (NEGATIVE) SARS-CoV-2 (PCR) (NEGATIVE) Micro Results-Entire Visit: Microbiology 02/14/24 04:40 Blood Culture - Preliminary Blood 02/14/24 04:45 Blood Culture - Preliminary Blood - Radiology Exams Ordered Rad Exams-Entire Visit: Radiology Procedures Category Date Time Status CHEST 2 VIEWS (PA AND LAT) Routine Exams 02/16/24 09:01 Completed CHEST WITH CONTRAST [CT] Routine Exams 02/16/24 10:33 Ordered ECHO W/2D AND DOPPLER [US] Routine Exams 02/15/24 10:31 Taken - Procedures and Test Procedures and Tests throughout Hospitalization: Therapy Orders & Screens 02/14/24 06:02 Respiratory Therapy Consult ONCE Comment: Reason For Exam: Diagnosis: hypoxia 02/14/24 06:03 BiPap/CPAP ROUTINE Comment: Diagnosis: hypoxia Oxygen Nasal Cannula 4 lpm Comment: Diagnosis: hypoxia 02/14/24 14:33 Respiratory Therapy Assessment DAILY Comment: Diagnosis: hypoxia 02/15/24 06:07 Flutter Therapy UD Comment: Diagnosis: hypoxia Incentive Spirometry UD Comment: Diagnosis: hypoxia 02/15/24 07:37 RT Miscellaneous Order ROUTINE Comment: Physician Instructions: Reason For Exam: evlaute for home O2 Diagnosis: hypoxia 02/15/24 12:23 PT Eval & Treat (MD Order) ONCE Reason for Eval:: increasd oxgen demand- home needs, increased SOB with walking. Diagnosis: hypoxia RT Miscellaneous Order ROUTINE Comment: Physician Instructions: Reason For Exam: eval and treat Diagnosis: hypoxia Discharge Exam General Appearance: no apparent distress, alert Neurologic Exam: alert, oriented x 3, cooperative, normal mood/affect, nml cerebellar function, sensation nml, No motor deficits Eye Exam: PERRL, EOMI, eyes nml inspection Ears, Nose, Throat Exam: normal ENT inspection, pharynx normal, moist mucous membranes Neck Exam: normal inspection, non-tender, supple, full range of motion Respiratory Exam: normal breath sounds, lungs clear, No respiratory distress Cardiovascular Exam: regular rate/rhythm, normal heart sounds Gastrointestinal/Abdomen Exam: soft, No tenderness, No mass Male Genitalia Exam: deferred Rectal Exam: deferred Back Exam: normal inspection, normal range of motion, No CVA tenderness, No vertebral tenderness Extremity Exam: normal inspection, normal range of motion Skin Exam: normal color, warm, dry Final Diagnosis/Problem List - Final Discharge Diagnosis/Problem (1) Sepsis Current Visit: Yes Status: Acute (2) Pneumonia Current Visit: Yes Status: Acute Code(s): J18.9 - PNEUMONIA, UNSPECIFIED ORGANISM (3) Increased oxygen demand Current Visit: Yes Status: Acute Code(s): R68.89 - OTHER GENERAL SYMPTOMS AND SIGNS (4) Essential (primary) hypertension Current Visit: Yes Status: Acute Code(s): I10 - ESSENTIAL (PRIMARY) HYPERTENSION (5) Headache Current Visit: Yes Status: Resolved Code(s): R51.9 - HEADACHE, UNSPECIFIED (6) Hypokalemia Current Visit: Yes Status: Resolved Code(s): E87.6 - HYPOKALEMIA (7) Oliguria Current Visit: Yes Status: Resolved Code(s): R34 - ANURIA AND OLIGURIA (8) Abdominal pain Current Visit: Yes Status: Resolved Assessment & Plan: (1) Sepsis Current Visit: Yes Status: Acute Assessment & Plan: - elevated temp on day of admission - HR> 90 - Resp > 20 - + pneumonia - 2 L IVF gave in ER - Lactic acid 0.9- ok - procal elevated 0.112 7/2 - resolved - IVF stopped (2) Pneumonia Current Visit: Yes Status: Acute Assessment & Plan: - Chest CT 02/14/24 IMPRESSION: Bilateral lower lobes posterior subpleural patchy ground glass veiling and reticular densities, more evident on the left side, possibly post-infectious sequel advise clinical correlation. -LA WNL -IVF -Most likely CAP - treat with ceftriaxone/azithromycin, steroids -anti-pyretics -resp panel negative -sputum culture - pending -ABG prn if significant hypoxia/lethargy -supplemental oxygen with spo2 goal > 92% -wean as appropriate -tele - WBC 11.4 02/15 - WBC 10.7 - ceftriaxone changed to Zosyn - Steroids changed to TID dosing - [place] county until March 01 - CXR 02/15 PA/lateral chest demonstrates new diffuse bilateral pulmonary edema without consolidation/large effusion. Heart not enlarged. Bony thorax intact - Chest CT with contrast pending. Code(s): J18.9 - PNEUMONIA, UNSPECIFIED ORGANISM (3) Increased oxygen demand Current Visit: Yes Status: Acute Assessment & Plan: - 2:2 pneumonia? - Echo, lasix x1 - BNP 426 - I&O's - On 5LNC 91% - Continuous pulse ox - Oxygen drops when standing and walking. - PT eval - RT eval and treat - RT eval for home O2 - FLU/COVID/RSV negative - Reswab for Flu/COVID RSV negative - Trop x3 negative 02/15 - On 10L oxymizer - repeat CXR and CTA Code(s): R68.89 - OTHER GENERAL SYMPTOMS AND SIGNS (4) Essential (primary) hypertension Current Visit: Yes Status: Acute Assessment & Plan: - Under fairly good control, though diuretics may have caused some dehydration/decreased urine output - Hold Triamterene HCT - Low Na+ diet - Monitor blood pressure readings 02/15 - BP stable Code(s): I10 - ESSENTIAL (PRIMARY) HYPERTENSION (5) Headache Current Visit: Yes Status: Resolved Qualifiers: Headache type: unspecified Headache chronicity pattern: acute headache Intractability: not intractable Qualified Code(s): R51.9 - Headache, unspecified Assessment & Plan: - Unclear etiology, may be tension headaches versus migraines but doubt meningitis/CVA as no neuro deficits noted - Will try NSAIDs for pain - Monitor with neuro checks - Reduce stimuli - CT head IMPRESSION: No acute intra or extra-axial pathology is identified. 02/15 - resolved Code(s): R51.9 - HEADACHE, UNSPECIFIED (6) Hypokalemia Current Visit: Yes Status: Resolved Assessment & Plan: - resolved Code(s): E87.6 - HYPOKALEMIA (7) Oliguria Current Visit: Yes Status: Resolved Assessment & Plan: - resolved - monitor I&O's Code(s): R34 - ANURIA AND OLIGURIA (8) Abdominal pain Current Visit: Yes Status: Resolved Assessment & Plan: - resolved - CT abd./ pelvis: 02/14/24 IMPRESSION: 1. Bilateral simple renal cortical cysts. 2. Mild colonic diverticulosis without diverticulitis. 3. Small fat containing umbilical hernia. 4. Mild lumbar spondylotic changes with L5 1st degree lytic spondylolisthesis Code(s): R10.9 - UNSPECIFIED ABDOMINAL PAIN (9) Hyperglycemia Current Visit: Yes Status: Acute Assessment & Plan: - accuchecks ac/hs - humalog s/s - 2:2 steroids - A1C 5.72 Code(s): R73.9 - HYPERGLYCEMIA, UNSPECIFIED (10) Pulmonary edema Current Visit: Yes Status: Acute Assessment & Plan: - Lasix 40mg IV QD - daily weight, I&O's - Cont pulse ox - Tele - repeat CTA 02/15 Impression: Compared to CT PE exam 2 days ago, there is again no pulmonary embolus. New diffuse bilateral pulmonary alveolar edema without cardiomegaly. Rule out noncardiogenic causes. - Echo completed yesterday reviewed and non-concerning. - denies CP Code(s): J81.1 - CHRONIC PULMONARY EDEMA - Discharge Discharge Date: 02/16/24 Disposition: XFER OTHER Condition: Fair Prescriptions: Continue Carvedilol 12.5 mg [Coreg 12.5 mg] 12.5 mg PO BID Triamterene/Hydrochlorothiazid [Triamterene-Hctz 37.5-25 mg Tb] 1 each PO DAILY Naltrexone Microspheres [Vivitrol] 380 mg IM UD Atorvastatin Calcium 20 mg PO DAILY Multivitamin [Multi-Vitamin Daily] 3 tab PO DAILY Calcium Carb, Citrate/Vit D3 [Citracal-D3 ER 600 mg-12.5 Mcg] 5 tab PO Q2H Follow up with: MYLES KIM [ACTIVE STAFF] - HARJIT RAMSEY NP [Primary Care Provider] -
--- NOTE | 2024-02-16 13:20 | XRAY ---
Indication: Worsening short of breath. Increasing oxygen demand. Multiple contiguous axial images obtained through the chest using 100 cc Isovue 370 contrast and PE protocol. Comparison: February 14, 2024. Adequate opacification of the pulmonary arteries. Again no pulmonary embolus. Heart not enlarged. Aorta is normal in course and caliber. No pathologic mediastinal/hilar lymphadenopathy. Lungs demonstrates new diffuse bilateral symmetric pulmonary alveolar edema without consolidation/effusion. Impression: Compared to CT PE exam 2 days ago, there is again no pulmonary embolus. New diffuse bilateral pulmonary alveolar edema without cardiomegaly. Rule out noncardiogenic causes.
[2024-02-16 16:48] VITALS: BP 133/79; TEMP 97.9
[2024-02-16 19:13] VITALS: PULSE 102; RESP 24; O2SAT 90
[2024-02-17] MEDS ORDERED: Lasix 40 MG/4 ML IV SCH (10:00)
== END 2024-02-16 19:50 ==
LOC: ED 01:13 → MED SURG 05:00
PROVIDERS: ADMIT Internal Medicine Nephrology; ATTEND Internal Medicine Nephrology
DX: A41.9 Sepsis, unspecified organism (principal); J18.9 Pneumonia, unspecified organism; R68.89 Other general symptoms and signs; I10 Essential (primary) hypertension; R51.9 Headache, unspecified; E87.6 Hypokalemia; R34 Anuria and oliguria; R10.9 Unspecified abdominal pain; R73.9 Hyperglycemia, unspecified; J81.1 Chronic pulmonary edema; E78.5 Hyperlipidemia, unspecified; D72.829 Elevated white blood cell count, unspecified; Z79.899 Other long term (current) drug therapy; Z98.84 Bariatric surgery status
CPT/HCPCS: 0241U; 36000; 36415; 36600; 70450; 71046; 71260; 74177; 80053; 80307; 81001; 82077; 82375; 82550; 82552; 82570; 82803; 82947; 83036; 83605; 83690; 83735; 83880; 84132; 84145; 84156; 84300; 84484; 85025; 85027; 87040; 87070; 87077; 87186; 93005; 93268; 93306; 94640; 94660; 94667; 94668; 94760; 94762; 96360; 96361; 96374; 99285; G0378; Q3014; 96375; J0456; J0696; J1650; J1940; J2543; J2919; J7609; A9270-GY

== ENCOUNTER 2024-07-07 14:22 | Emergency (ER) | payer OTHER ==
[2024-07-07 14:43] VITALS: TEMP 98.2; O2SAT 95
[2024-07-07] MEDS ORDERED: XYLOCAINE 1%/Epi 1:100000 MDV 20 ML ONE (15:02)
[2024-07-07 15:47] VITALS: BP 120/81; PULSE 80; RESP 18
--- NOTE | 2024-07-07 15:59 | ERPHSYRPT ---
- History of Present Illness Time Seen by Provider: 07/07/24 14:36 Source: patient Exam Limitations: no limitations Patient Subjective Stated Complaint: C/O abcsess to right side of abdomen near hip area. Indicates it started several days ago and is becoming worse. Triage Nursing Assessment: Patient ambulated back to ER without difficulties. He is alert and oriented. Abscess to right side measures 2cm X 2cm and is circular in shape. Area is raised. Some necrosis noted. Surrounding skin is red and warm. Physician History: 44 years old male with history of hypertension, hyperlipidemia, axilla abscess in the past presented in the ER with complaint of swelling and a developing abscess/boil on the right lower quadrant area. Patient reported it started as a small pimple last week and gradually getting worse and since yesterday increasing swelling redness and some pain. He was seen outpatient, was prescribed doxycycline but it is gradually worsening and seems like it is ready to burst open. No fever or chills reported. No history of MRSA. Allergies/Adverse Reactions: No Known Drug Allergies Allergy (Verified 07/07/24 14:27) Home Medications: Atorvastatin Calcium 20 mg PO DAILY 02/14/24 [History] Carvedilol 12.5 mg [Coreg 12.5 mg] 12.5 mg PO BID 02/14/24 [History] Multivitamin [Multi-Vitamin Daily] 3 tab PO DAILY 02/14/24 [History] Triamterene/Hydrochlorothiazid [Triamterene-Hctz 37.5-25 mg Tb] 1 each PO DAILY 02/14/24 [History] Calcium Carb, Citrate/Vit D3 [Citracal-D3 ER 600 mg-12.5 Mcg] 5 tab PO Q2H 02/15/24 [History] Doxycycline Hyclate 100 mg [Vibramycin 100 MG] 100 mg PO BID 07/07/24 [History] Hx Tetanus, Diphtheria Vaccination/Date Given: Yes Hx Influenza Vaccination/Date Given: Yes Hx Pneumococcal Vaccination/Date Given: No Immunizations Up to Date: Yes Travel Risk - International Travel Have you traveled outside of the country in past 3 weeks: No - Emerging Infectious Disease Are you exhibiting symptoms associated with any current EIDs: No Symptoms: Abdominal Pain, Fever, Headaches/Body Aches/, Shortness of Breath - Review of Systems Constitutional: No Symptoms Respiratory: No Symptoms Cardiac: No Symptoms Abdominal/Gastrointestinal: No Symptoms Skin: Cellulitis, Skin Lesions Neurological: No Symptoms Psychological: No Symptoms Endocrine: No Symptoms - Past Medical History Pertinent Past Medical History: Yes Neurological History: Migraines, Peripheral Neuropathy ENT History: No Pertinent History Cardiac History: High Cholesterol, Hypertension Respiratory History: No Pertinent History Endocrine Medical History: No Pertinent History Musculoskeletal History: No Pertinent History GI Medical History: Diverticulosis History: No Pertinent History Psycho-Social History: No Pertinent History Male Reproductive Disorders: No Pertinent History Other Medical History: Gastric sleeve 10/2018, - Past Surgical History Past Surgical History: Yes Neuro Surgical History: No Pertinent History Cardiac: No Pertinent History Respiratory: No Pertinent History Gastrointestinal: Other Genitourinary: No Pertinent History Musculoskeletal: No Pertinent History Male Surgical History: No Pertinent History Other Surgical History: gastric bypass - Social History Smoking Status: Never smoker Exposure to second hand smoke: No Drug Use: none Patient Lives Alone: No - Social Determinants of Health Will the patient participate in the screening: Yes Do you worry about a steady place to live?: No Do you have any problems with any of the following?: No known problems In the past 12 months,have you had to go without utilities?: No Transportation Issues: No Has anyone in your support network made you feel unsafe?: No Have you or anyone in your house had to go without enough: No - Nursing Vital Signs Nursing Vital Signs: Initial Vital Signs Temperature 98.2 F 07/07/24 14:25 Pulse Rate 74 07/07/24 14:25 Respiratory Rate 17 07/07/24 14:25 Blood Pressure 135/86 07/07/24 14:25 O2 Sat by Pulse Oximetry 97 07/07/24 14:25 Pain Scale Pain Intensity 0 - Physical Exam General Appearance: no apparent distress Eye Exam: PERRL/EOMI Neck Exam: normal inspection, full range of motion Respiratory Exam: normal breath sounds, lungs clear Cardiovascular Exam: regular rate/rhythm, normal heart sounds Gastrointestinal/Abdomen Exam: soft, normal bowel sounds, other (Erythema around with central area of abscess with positive fluctuation, central blackening.) Extremity Exam: normal inspection, normal range of motion Neurologic Exam: alert, oriented x 3, cooperative Skin Exam: normal color SpO2 Interpretation: normal SpO2: 95 O2 Delivery: Room Air Procedures - Incision and Drainage Time of Procedure: 15:57 Timeout: Performed Anesthesia: 1% lidocaine w/epi cc's of anesthesia: other (10) Blade Size: 11 I & D Procedure: betadine prep, sterile dressing applied, culture obtained Results: moderate amount pus Progress: Tolerated procedure very well Ordered Tests: Active Orders 24 hr Category Date Time Status CULTURE,WOUND Stat Lab 07/07/24 15:51 Received Medication Summary Discontinued Medications Generic Name Dose Route Start Last Admin Trade Name Freq PRN Reason Stop Dose Admin Clindamycin HCl 300 mg 07/07/24 15:53 07/07/24 16:18 Clindamycin Hcl 150 Mg Capsule PO 07/07/24 15:54 300 mg STAT ONE Administration Clindamycin HCl Confirm 07/07/24 16:12 Clindamycin Hcl 150 Mg Capsule Administered 07/07/24 16:13 Dose 300 mg .ROUTE .STK-MED ONE Lidocaine/Epinephrine Confirm 07/07/24 15:02 Lidocaine Hcl/Epinephrine 1% 20 Ml Administered 07/07/24 15:03 Dose 1 ml .ROUTE .STK-MED ONE - Progress Progress Note: 07/07/24 15:57 44 years old nondiabetic is evaluated for right-sided lower abdominal wall abscess with cellulitis. Patient is on antibiotics. Has positive fluctuation, I&D is done. Packing placed then. I will add clindamycin as well. Recommended Tylenol/ibuprofen as needed, discussed signs symptoms of worsening needing return to ER which he seems understanding. Counseled pt/family regarding: diagnosis, need for follow-up Medical Desision Making - Risk of complications The pt has a mod risk of morbidity or mortality based on: Need for prescription drug management, Need for minor surgical intervention in patient with know risk factors - Departure Departure Disposition: Home Clinical Impression: Abdominal wall abscess Condition: Stable Critical Care Time: No Referrals: HARJIT RAMSEY NP [Primary Care Provider] - Follow up with PCP 1 day Instructions: MRSA (DC), Wound Infection Additional Instructions: Daily packing. Keep it clean and dry. Follow-up with primary care for reevaluation. Return to ER for increasing pain swelling discharge, redness or if develop fever chills etc. Prescriptions: Hydrocodone/Acetaminophen [Hydrocodone-Acetamin 7.5-325] 1 each PO Q6HPRN PRN 3 Days #12 tablet MDD 4 PRN Reason: Pain clindamycin HCL [Clindamycin HCl] 300 mg PO QID 7 Days #28 cap
[2024-07-07] MEDS ORDERED: CLEOCIN 150 MG CAPSULE ONE (16:12)
[2024-07-07] MEDS: CLEOCIN 150 MG CAPSULE PO ONE (16:18)
== END 2024-07-07 16:41 | disposition home or self-care (01) ==
LOC: ED 14:22
DX: L02.211 Cutaneous abscess of abdominal wall (principal); I10 Essential (primary) hypertension; E78.5 Hyperlipidemia, unspecified; Z79.891 Long term (current) use of opiate analgesic; Z79.899 Other long term (current) drug therapy
CPT/HCPCS: 10060; 87070; 87077; 87186; 99283; A9270-GY

== ENCOUNTER 2024-07-31 19:02 | Emergency (ER) | payer OTHER ==
[2024-07-31 20:39] VITALS: PULSE 101; RESP 16; TEMP 97.4
--- NOTE | 2024-07-31 20:41 | ERPHSYRPT ---
- History of Present Illness Historian: patient Exam Limitations: no limitations Patient Subjective Stated Complaint: vomiting and abdominal pain x 3 hours, diarrhea x 3 days Triage Nursing Assessment: presents to ed with 3 day history diarrhea, 2 hr history of vomiting, abdominal pain. states sick with same symptoms. umbilical hernia repair x 2 weeks ago with Kobi Cobb. on unknown abx right now for infection following hernia surgery but pt states surgical site no longer weeping. site appears well healing, no drainage, skin pwd. unable to lay still in bed, attempting to get into position of comfort. A &Ox3. Ambulatory, answers all questions appropriately. Physician History: Patient said diarrhea and vomiting for about 3 days. He thinks he may be dehydrated. He has some pain and irritation in his epigastric area. It does not migrate. Is been pretty persistent. It gets worse when he vomits. Of note he had a hernia repair done in January. Appears to not be herniated. It was a ventral hernia. He has no symptoms from that. He does not have any dysuria. He has no respiratory symptoms. Nothing makes his symptoms better or worse. He says that whenever he eats he gets nauseated. He is able to keep fluids down but not much. He has no other complaints at this time. Allergies/Adverse Reactions: No Known Drug Allergies Allergy (Verified 07/07/24 14:27) Home Medications: Atorvastatin Calcium 20 mg PO DAILY 02/14/24 [History] Carvedilol 12.5 mg [Coreg 12.5 mg] 12.5 mg PO BID 02/14/24 [History] Multivitamin [Multi-Vitamin Daily] 3 tab PO DAILY 02/14/24 [History] Triamterene/Hydrochlorothiazid [Triamterene-Hctz 37.5-25 mg Tb] 1 each PO DAILY 02/14/24 [History] Calcium Carb, Citrate/Vit D3 [Citracal-D3 ER 600 mg-12.5 Mcg] 5 tab PO Q2H 02/15/24 [History] Doxycycline Hyclate 100 mg [Vibramycin 100 MG] 100 mg PO BID 07/07/24 [History] Hx Tetanus, Diphtheria Vaccination/Date Given: Yes Hx Influenza Vaccination/Date Given: No Hx Pneumococcal Vaccination/Date Given: No Travel Risk - International Travel Have you traveled outside of the country in past 3 weeks: No - Emerging Infectious Disease Are you exhibiting symptoms associated with any current EIDs: Yes Symptoms: Abdominal Pain, Diarrhea, Vomitting - Review of Systems Constitutional: Malaise Eyes: No Symptoms Ears, Nose, & Throat: No Symptoms Respiratory: No Symptoms Cardiac: No Symptoms Abdominal/Gastrointestinal: Abdominal Pain, Nausea, Vomiting, Diarrhea Genitourinary Symptoms: No Symptoms - Past Medical History Pertinent Past Medical History: Yes Neurological History: Migraines, Peripheral Neuropathy ENT History: No Pertinent History Cardiac History: High Cholesterol, Hypertension Respiratory History: No Pertinent History Endocrine Medical History: No Pertinent History Musculoskeletal History: No Pertinent History GI Medical History: Diverticulosis History: No Pertinent History Psycho-Social History: No Pertinent History Male Reproductive Disorders: No Pertinent History Other Medical History: Gastric sleeve 10/2018, - Past Surgical History Past Surgical History: Yes Neuro Surgical History: No Pertinent History Cardiac: No Pertinent History Respiratory: No Pertinent History Gastrointestinal: Other Genitourinary: No Pertinent History Musculoskeletal: No Pertinent History Male Surgical History: No Pertinent History Other Surgical History: gastric bypass - Social History Smoking Status: Never smoker Exposure to second hand smoke: No Drug Use: none Patient Lives Alone: No - Social Determinants of Health Will the patient participate in the screening: Yes Do you worry about a steady place to live?: No In the past 12 months,have you had to go without utilities?: No Transportation Issues: No Has anyone in your support network made you feel unsafe?: No Have you or anyone in your house had to go without enough: No - Nursing Vital Signs Nursing Vital Signs: Initial Vital Signs Temperature 97.4 F 07/31/24 20:31 Pulse Rate 101 H 07/31/24 20:31 Respiratory Rate 16 07/31/24 20:31 Blood Pressure 144/98 07/31/24 20:31 O2 Sat by Pulse Oximetry 97 07/31/24 20:31 Pain Scale Pain Intensity 9 - Physical Exam General Appearance: no apparent distress Eye Exam: PERRL/EOMI Ears, Nose, Throat Exam: normal ENT inspection Neck Exam: normal inspection Respiratory Exam: normal breath sounds Cardiovascular Exam: regular rate/rhythm Gastrointestinal/Abdomen Exam: soft, normal bowel sounds, tenderness (Mild tenderness in the epigastric area with palpation) Rectal Exam: not done Back Exam: normal inspection Extremity Exam: normal inspection Neurologic Exam: alert, oriented x 3 SpO2: 97 - Course Nursing assessment & vital signs reviewed: Yes Ordered Tests: Active Orders 24 hr Category Date Time Status CBC W DIFF Stat Lab 07/31/24 20:50 Completed CMP Stat Lab 07/31/24 20:50 Completed LIPASE Stat Lab 07/31/24 20:50 Completed Medication Summary Discontinued Medications Generic Name Dose Route Start Last Admin Trade Name Tika PRN Reason Stop Dose Admin Sodium Chloride 1,000 mls @ 999 mls/hr 07/31/24 20:38 07/31/24 20:45 Sodium Chloride 0.9% 1000 Ml IV 07/31/24 21:38 999 mls/hr .Q1H1M STA Administration Sodium Chloride Confirm 07/31/24 20:43 Sodium Chloride 0.9% 1000 Ml Administered 07/31/24 20:44 Dose 1,000 mls @ ud .ROUTE .STK-MED ONE Ondansetron HCl 4 mg 07/31/24 20:38 07/31/24 20:45 Ondansetron Hcl 4 Mg/2 Ml Vial IV 07/31/24 20:39 4 mg STAT ONE Administration Ondansetron HCl Confirm 07/31/24 20:43 Ondansetron Hcl 4 Mg/2 Ml Vial Administered 07/31/24 20:44 Dose 4 mg .ROUTE .STK-MED ONE Lab/Rad Data: Laboratory Result Diagrams 07/31/24 20:50 07/31/24 20:50 Laboratory Results 07/31/24 07/31/24 Range/Units 20:50 20:50 WBC 13.0 H (4.23-9.07) x10^3/uL RBC 5.69 (4.63-6.08) x10^6/uL Hgb 16.7 (13.7-17.5) g/dL Hct 48.8 (40.1-51.0) % MCV 85.8 (79.0-92.2) fL MCH 29.3 (25.7-32.2) pg MCHC 34.2 (32.3-36.5) g/dL RDW 11.7 (11.6-14.4) % Plt Count 303 (163-337) x10^3/uL MPV 9.0 L (9.4-12.4) fL Gran % 90.6 H (34.0-67.9) % Immature Gran % (Auto) 0.5 H (0.001-0.429) % Nucleat RBC Rel Count 0.0 (0.00-0.2) % Eos # (Auto) 0.18 (0.04-0.54) x10^3/uL Immature Gran # (Auto) 0.07 H (0.001-0.031) x10^3u/L Absolute Lymphs (auto) 0.30 L (1.32-3.57) x10^3/uL Absolute Monos (auto) 0.65 (0.30-0.82) x10^3/uL Absolute Nucleated RBC 0.00 (0.00-0.012) x10^3u/L Lymphocytes % 2.3 L (21.8-53.1) % Monocytes % 5.0 L (5.3-12.2) % Eosinophils % 1.4 (0.8-7.0) % Basophils % 0.2 (0.2-1.2) % Absolute Granulocytes 11.81 H (1.78-5.38) x10^3/uL Basophils # 0.03 (0.01-0.08) x10^3/uL Sodium 139 (135-145) mmol/L Potassium 3.9 (3.5-5.1) mmol/L Chloride 103 (98-107) mmol/L Carbon Dioxide 21 L (22-30) mmol/L Anion Gap 17.4 H (5-15) MEQ/L BUN 20 (9-20) mg/dL Creatinine 1.17 (0.66-1.25) mg/dL Estimated GFR 77.9 ML/MIN Glucose 166 H (74-106) mg/dL Calcium 9.8 (8.4-10.2) mg/dL Total Bilirubin 0.70 (0.2-1.3) mg/dL AST 39 (17-59) U/L ALT 66 H (0-50) U/L Alkaline Phosphatase 108 (38-126) U/L Serum Total Protein 9.0 H (6.3-8.2) g/dL Albumin 5.2 H (3.5-5.0) g/dL Lipase 155 (23-300) U/L Slides for Path Review YES - Progress Progress: improved Progress Note: Patient was stable throughout stay. On the differential was intra-abdominal infection such as diverticulitis or pancreatitis or appendicitis. Also was gastroenteritis and colitis. I went ahead and got some labs on him. Evidence is pointing towards viral gastroenteritis as was his symptoms and physical findings. He got a liter of fluids and felt much better. He also got Zofran. I am going to discharge him to home in stable condition with Zofran. He is to return if symptoms worsen follow-up with primary care doctor. 07/31/24 22:29 - Departure Departure Disposition: Home Clinical Impression: Vomiting and diarrhea Condition: Stable Critical Care Time: No Referrals: HARJIT RAMSEY, DIRECTOR INTERNAL COMM[employer]ICATIONS [Primary Care Provider] - Follow up/PCP as directed Instructions: Viral gastroenteritis in adults Prescriptions: Ondansetron ODT 4 MG [Zofran Odt 4 mg] 4 mg PO Q6H PRN PRN #10 tablet PRN Reason: Nausea
[2024-07-31] MEDS ORDERED: Sodium Chloride 0.9% 1000 ML 1,000 ML ONE (20:43)
[2024-07-31] MEDS ORDERED: Zofran 4 MG/2 ML VIAL ONE (20:43)
[2024-07-31] MEDS: Zofran 4 MG/2 ML VIAL IV ONE (20:45)
[2024-07-31] MEDS: Sodium Chloride 0.9% 1000 ML 1,000 ML IV STA (20:45)
[2024-07-31 20:56] LABS: Absolute Neutrophil Ct (ANC) 11.81 x10^3/uL (1.78-5.38); BASOPHIL % 0.2 % (0.2-1.2); Basophil (Absolute #) 0.03 x10^3/uL (0.01-0.08); Eosinophil % 1.4 % (0.8-7.0); Eosinophil (Absolute #) 0.18 x10^3/uL (0.04-0.54); Hematocrit 48.8 % (40.1-51.0); Hemoglobin 16.7 g/dL (13.7-17.5); IMMATURE GRAN # 0.07 x10^3u/L (0.001-0.031); IMMATURE GRAN % 0.5 % (0.001-0.429); Lymphocytes % 2.3 % (21.8-53.1); Mean Cell Volume 85.8 fL (79.0-92.2); Mean Corpuscular Hemoglobin 29.3 pg (25.7-32.2); Mean Corpuscular Hgb Concent. 34.2 g/dL (32.3-36.5); Monocyte (Absolute #) 0.65 x10^3/uL (0.30-0.82); Neutrophil % 90.6 % (34.0-67.9); Platelet Count 303 x10^3/uL (163-337); Red Blood Count 5.69 x10^6/uL (4.63-6.08); Red Cell Distribution Width 11.7 % (11.6-14.4)
[2024-07-31 21:10] LABS: ALBUMIN 5.2 g/dL (3.5-5.0); ANION GAP 17.4 MEQ/L (5-15); BILIRUBIN,TOTAL 0.7 mg/dL (0.2-1.3); Calcium 9.8 mg/dL (8.4-10.2); Creatinine 1 1.17 mg/dL (0.66-1.25); EST GLOMERULAR FILTRATION RATE 77.9 ML/MIN; Potassium 3.9 mmol/L (3.5-5.1)
[2024-07-31 22:12] LABS: Slide Review 1 YES
[2024-07-31 23:15] VITALS: BP 143/87; O2SAT 95
== END 2024-07-31 23:20 | disposition home or self-care (01) ==
LOC: ED 19:02
DX: R11.2 Nausea with vomiting, unspecified (principal); R19.7 Diarrhea, unspecified; R10.9 Unspecified abdominal pain
CPT/HCPCS: 36415; 80053; 83690; 85025; 96374; 99284; J2405

== ENCOUNTER 2025-06-17 20:56 | Emergency (ER) | payer OTHER ==
[2025-06-17 21:05] VITALS: TEMP 97.8
--- NOTE | 2025-06-17 21:21 | ERPHSYRPT ---
- History of Present Illness Time Seen by Provider: 06/17/25 21:15 Source: patient Exam Limitations: no limitations Physician History: This is a 45-year-old white male patient who arrives by private vehicle and is a patient nurse practitioner Bennie with the complaint of bilateral paraspinous muscle pain especially with laying flat and movement as well as occipital headache. He has not had any flulike symptoms. He has not been febrile. He said no visual changes and no evidence of photophobia. He has had no nausea vomiting or diarrhea symptoms. Patient is a diesel truck mechanic. He noticed pain in his left hip and was seen for this at another facility. That pain seemed to improve but he noticed after he woke up yesterday that there was some pain as stated above it was worse today despite taking 2 Advil this morning and a naproxen tablet at 1800. Patient drove himself into the emergency department. Patient has a history of hypertension and hyperlipidemia. He has history of migraine headaches. Timing/Duration: yesterday, worse Severity: mild (To moderate) Associated Symptoms: headaches Allergies/Adverse Reactions: No Known Drug Allergies Allergy (Verified 06/17/25 21:06) Home Medications: Atorvastatin Calcium 20 mg PO HS 02/14/24 [History] Carvedilol 12.5 mg [Coreg 12.5 mg] 12.5 mg PO BID 02/14/24 [History] Multivitamin [Multi-Vitamin Daily] 3 tab PO DAILY 02/14/24 [History] Triamterene/Hydrochlorothiazid [Triamterene-Hctz 37.5-25 mg Tb] 1 each PO DAILY 02/14/24 [History] Calcium Carb, Citrate/Vit D3 [Citracal-D3 ER 600 mg-12.5 Mcg] 1 tab PO Q2H 02/15/24 [History] Hx Tetanus, Diphtheria Vaccination/Date Given: Yes Hx Influenza Vaccination/Date Given: No Hx Pneumococcal Vaccination/Date Given: No Travel Risk - International Travel Have you traveled outside of the country in past 3 weeks: No - Emerging Infectious Disease Are you exhibiting symptoms associated with any current EIDs: Yes Symptoms: Abdominal Pain, Diarrhea, Vomitting - Review of Systems Constitutional: No Symptoms Eyes: No Symptoms Ears, Nose, & Throat: No Symptoms Respiratory: No Symptoms Cardiac: No Symptoms Abdominal/Gastrointestinal: No Symptoms Genitourinary Symptoms: No Symptoms Musculoskeletal: Neck Pain Skin: No Symptoms Neurological: Headache Psychological: No Symptoms Endocrine: No Symptoms Hematologic/Lymphatic: No Symptoms Immunological/Allergic: No Symptoms All Other Systems: Reviewed and Negative - Past Medical History Pertinent Past Medical History: Yes Neurological History: Migraines, Peripheral Neuropathy ENT History: No Pertinent History Cardiac History: High Cholesterol, Hypertension Respiratory History: No Pertinent History Endocrine Medical History: No Pertinent History Musculoskeletal History: No Pertinent History GI Medical History: Diverticulosis History: No Pertinent History Psycho-Social History: No Pertinent History Male Reproductive Disorders: No Pertinent History Other Medical History: Gastric sleeve 10/2018, - Past Surgical History Past Surgical History: Yes Neuro Surgical History: No Pertinent History Cardiac: No Pertinent History Respiratory: No Pertinent History Gastrointestinal: Other Genitourinary: No Pertinent History Musculoskeletal: No Pertinent History Male Surgical History: No Pertinent History Other Surgical History: gastric bypass - Social History Smoking Status: Never smoker Exposure to second hand smoke: No Drug Use: none Patient Lives Alone: No - Social Determinants of Health Will the patient participate in the screening: Yes Do you worry about a steady place to live?: No In the past 12 months,have you had to go without utilities?: No Transportation Issues: No Has anyone in your support network made you feel unsafe?: No Have you or anyone in your house had to go w/o enough food: No - Nursing Vital Signs Nursing Vital Signs: Initial Vital Signs Temperature 97.8 F 06/17/25 21:03 Pulse Rate 84 06/17/25 21:03 Respiratory Rate 20 06/17/25 21:03 Blood Pressure 164/96 06/17/25 21:03 O2 Sat by Pulse Oximetry 98 06/17/25 21:03 Pain Scale Pain Intensity 3 - Physical Exam General Appearance: no apparent distress, alert, anxiety Eye Exam: PERRL/EOMI, eyes nml inspection Ears, Nose, Throat Exam: normal ENT inspection, moist mucous membranes Neck Exam: normal inspection, supple, full range of motion, other (No cervical spine tenderness), No meningismus, No lymphadenopathy, No midline tenderness Respiratory Exam: airway intact, No chest tenderness, No respiratory distress Gastrointestinal/Abdomen Exam: No tenderness Rectal Exam: No not done Back Exam: normal inspection, normal range of motion, No CVA tenderness, No vertebral tenderness Extremity Exam: normal inspection, normal range of motion, pelvis stable Neurologic Exam: alert, oriented x 3, cooperative, manufacturing analyst II-XII nml as tested, nml cerebellar function, nml station & gait, sensation nml Skin Exam: normal color, warm, dry Lymphatic Exam: No adenopathy SpO2 Interpretation: normal SpO2: 98 O2 Delivery: Room Air - Course Nursing assessment & vital signs reviewed: Yes Ordered Tests: Active Orders 24 hr Category Date Time Status HEAD WITHOUT CONTRAST [CT] Stat Exams 06/17/25 21:20 Completed - Progress Progress: improved, pain not gone completely, re-examined Progress Note: 06/17/25 22:02 My medical decision making and the assignment of low complexity of this patient's medical issue today is based on review of the patient's past medical history, reviewed patient's medication list, reviewed patient drug allergy list, history present illness and physical findings on examination. The workup in this patient includes CT scan of the head without contrast. Differential diagnosis includes was not limited to migraine headache, tension headache, cervical strain, muscle spasm 06/17/25 22:[address] scan of the head without contrast was interpreted by the radiologist and it was compared to similar study dated 02/14/2024. There are no acute intracranial abnormalities. There is evidence of left maxillary and right sphenoid sinusitis. There is enlarged extra-axial space along medial aspect of left cerebellum with CSF attenuation. Findings suggestive of retrocerebellar arachnoid cyst. This is a stable finding when compared to prior study. 06/17/25 22:54 I discussed the above CT scan results with the patient. Counseled pt/family regarding: diagnosis, need for follow-up, rad results Medical Desision Making - Diagnostic Testing Diagnostic test were ordered, analyzed, and reviewed by me: Yes Radiological Interpretation: Reviewed by me, Teleradiologist Report - Risk of complications Low Risk: Low risk of morbidity from additional dx testing or treatment The pt has a mod risk of morbidity or mortality based on: Need for prescription drug management - Departure Departure Disposition: Home Clinical Impression: Headache, Sinusitis, Cervical strain Condition: Stable Critical Care Time: No Referrals: HARJIT RAMSEY NP [Primary Care Provider, [facility]] - Follow up/PCP as directed Additional Instructions: Drink plenty of fluids. Take your antibiotics and other medication as prescribed. Call your prescribing provider on 06/19/2025, to make arrangements for follow-up appointment for further evaluation management and discussed the stable, persistent CT scan of the head findings.. Prescriptions: Amoxicillin/Potassium Clav [Augmentin 500-125 Tablet] 1 each PO TID 5 Days #15 tablet Prednisone 10 mg [Deltasone 10 mg] 10 mg PO TID #12 tablet Orphenadrine Citrate 100 mg [Norflex 100 MG Tablet] 100 mg PO BID #10 tab
--- NOTE | 2025-06-17 22:40 | XRAY ---
CLINICAL HISTORY: Headache COMPARISON: 02/14/2024 CT TECHNIQUE: Axial non-contrast CT scan of the brain was performed from the skull base to the high parietal region. One of the following dose reduction techniques were utilized for this exam: Automated exposure control, adjustment of the mA and/or kV according to patient size, use of iterative reconstruction. FINDINGS: Brain Parenchyma: Normal attenuation of the cerebral hemispheres, cerebellum, and brainstem. No evidence of acute infarct, hemorrhage, or mass effect. No abnormal areas of hypo- or hyperattenuation. Ventricular System: Ventricles are normal in size and configuration. No evidence of hydrocephalus or ventricular enlargement. Subarachnoid Spaces: Normal sulci and cisterns. No evidence of subarachnoid hemorrhage or extra-axial fluid collections. Cerebellum and Brainstem: Enlarged extra-axial spaces along the medial aspect of left cerebellum with CSF attenuation, measuring 18 mm in maximum thickness, possible arachnoid cyst. Stable Orbits: Normal appearance of the globes, optic nerves, and extraocular muscles. No evidence of orbital masses or abnormal density. Sinuses: Mucosal thickening seen in both ethmoid, left maxillary and right sphenoidal sinuses suggesting sinusitis Mastoid Air Cells: Clear mastoid air cells. No evidence of mastoiditis. Skull: Normal skull morphology. IMPRESSION: Enlarged extra-axial space along the medial aspect of left cerebellum with CSF attenuation, measuring 18 mm in maximum thickness, Findings are suggestive of retrocerebellar arachnoid cyst rather than Leonardo cisterna magna in view of the clinical symptoms. Stable. Otherwise no acute intracranial abnormality Electronically Signed by: Diony Bautista MD. (06/17/2025 22:39:36 EDT)
[2025-06-17 22:56] VITALS: O2SAT 98
[2025-06-17] MEDS ORDERED: DELTASONE 20 MG ONE (23:08)
[2025-06-17] MEDS ORDERED: NORCO 5/325 MG ONE (23:08)
[2025-06-17] MEDS: DELTASONE 20 MG PO ONE (23:11)
[2025-06-17 23:13] VITALS: BP 149/91; PULSE 84; RESP 17
[2025-06-17] MEDS: NORCO 5/325 MG PO ONE (23:15)
== END 2025-06-17 23:29 | disposition home or self-care (01) ==
LOC: ED 20:56
DX: R51.9 Headache, unspecified (principal); J32.8 Other chronic sinusitis; S16.1XXA Strain of muscle, fascia and tendon at neck level, initial encounter; I10 Essential (primary) hypertension; Z79.899 Other long term (current) drug therapy